=== PATIENT | female | born 1985 | race Caucasian/White ===

== ENCOUNTER 2016-09-18 15:30 | Emergency (ER) | payer OTHER ==
--- NOTE | 2016-09-18 18:03 | ED CLINICAL REPORT ---
Clinical Report - Physicians/Mid Levels [facility] [address] [place] [address] 09/18/2016 15:31 Patient: YOLIE CHAMPION Time Seen: 16:13; initial patient contact, initial documentation, patient care assumed. Arrived- By private vehicle. Historian- patient. HISTORY OF PRESENT ILLNESS Chief Complaint: ABDOMINAL PAIN. This started about 3 days ago and is still present. At its maximum, severity described as severe. When seen in the E.D., severity described as mild. Modifying factors. Not worsened by anything. Not relieved by anything. It is described as "pain". No radiation. It is described as located in the right abdomen. The patient has had nausea. No loss of appetite or diarrhea. She has had mild vomiting (x3 episodes today). The vomiting has occurred several times. No bilious emesis, feculent emesis, blood-tinged emesis, coffee-grounds emesis or frankly bloody emesis. No unusually dark emesis. No additional abdominal pain. (here with boyfriend who also has belly issues). No recent travel. Similar symptoms previously: None. Recent medical care: Not recently seen/assessed. REVIEW OF SYSTEMS No constipation, black stools, hematemesis, difficulty with urination or pain with urination. No urinary frequency or bloody stools. Denies current . She has had a subjective fever with chills and sweating. She has had chills. All systems otherwise negative, except as recorded above. PAST HISTORY See nurses notes. PROBLEMS: Syncope. Alcohol Intoxication. Hepatitis. Mental Illness. Viral Disease. Otitis Externa. Lumbar Strain. Sinusitis. Fall. Sprain. Abrasion(s). Skin Rash. Contusion. Herpes Genitalis. Bronchitis. URI. Pharyngitis. UTI - Urinary Tract Infection. Depression. --15:57 Kaylene Sanchez R.N. ADDITIONAL SURGERIES: Adenoidectomy. Tonsillectomy. Tympanostomy Tubes. --15:57 Kaylene Sanchez R.N. SOCIAL HISTORY Light tobacco smoker. Occasional alcohol use. No drug use. No recent travel. Is a local resident. FAMILY HISTORY Negative. ADDITIONAL NOTES The nursing notes have been reviewed with agreement regarding the chief complaint, HPI, ROS, PMH and patient medications and allergies. PHYSICAL EXAM Vital Signs: 09/18/2016 15:54 BP: 137/96. HR: 67. RR: 18. O2 saturation: 100%. Temp: 98.3 F. Have been reviewed as normal and appear to be correct. Appearance: Alert. Oriented X3. No acute distress. (pt appears under the influence). Eyes: Pupils equal, round and reactive to light. Eyes normal inspection. Neck: Normal inspection. Neck supple. CVS: Normal heart rate and rhythm. Heart sounds normal. Pulses normal. Respiratory: No respiratory distress. Breath sounds normal. Chest nontender. Abdomen: Soft and nontender. Bowel sounds normal. No organomegaly. No mass. Back: Normal inspection. Skin: Skin warm and dry. Normal skin color. No rash. Normal skin turgor. Extremities: Extremities exhibit normal ROM. No lower extremity edema. Neuro: Oriented X 3. No motor deficit. No sensory deficit. LABS, X-RAYS, AND EKG Laboratory Tests: UA-Culture if indicated: (ANNALISE: 09/18/2016 16:00) ( MsgRcvd 09/18/2016 16:31) Final results Test Result Flag Units (Reference) URINE COLOR YELLOW URINE APPEARANCE CLEAR URINE GLUCOSE NEGATIVE (NEGATIVE) URINE BILIRUBIN NEGATIVE (NEGATIVE) URINE KETONE NEGATIVE (NEGATIVE) URINE SPECIFIC GRAVITY 1.015 (1.010-1.030) URINE PH 6.5 (5.0-8.0) URINE PROTEIN NEGATIVE (NEGATIVE) URINE UROBILINOGEN 0.2 EU/dL (0.2-1.0) URINE NITRITE NEGATIVE (NEGATIVE) URINE BLOOD 1+ (NEGATIVE) URINE LEUK ESTERASE NEGATIVE (NEGATIVE) URINE RBC 1-3 rbc/hpf (0-1) URINE WBC 0-1 wbc/hpf (0-1) URINE EPITHELIAL CELLS 1-3 EPI/hpf (0-5) URINE BACTERIA NONE SEEN (NONE SEEN) URINE COMMENT CULT NOT INDICATED URINE CULTURES ARE SET-UP BASED ON THE FOLLOWING CRITERIA:POSITIVE NITRITEPOSITIVE LEUKOCYTE ESTERASEGREATER THAN 10 WHITE BLOOD CELLSMODERATE (2+) OR GREATER BACTERIA Urine: (ANNALISE: 09/18/2016 16:00) ( MsgRcvd 09/18/2016 17:27) Final results Test Result Flag Units (Reference) URINE NEGATIVE CBC w Diff: (ANNALISE: 09/18/2016 17:05) ( MsgRcvd 09/18/2016 17:19) Final results Test Result Flag Units (Reference) WHITE BLOOD COUNT 7.5 K/uL (4.5-11.5) RED BLOOD COUNT 4.88 M/uL (4.00-5.20) HEMOGLOBIN 15.1 gm/dL (12.0-16.0) HEMATOCRIT 44.2 % (36.0-46.0) MEAN CELL VOLUME 91 fL (80-100) MEAN CORPUSCULAR HGB 31 pg (26-34) MEAN CORPUSCULAR HGB CONC 34 g/dL (31-37) RED CELL DISTRIBUTION WIDTH 13.5 % (11.6-14.8) PLATELET COUNT 236 K/uL (150-400) NEUTROPHIL % 70.3 % (50-75) LYMPH % 22.5 L % (25-40) MONO % 5.9 % (3-14) EOSINOPHIL % 1.1 % (0-4) BASOPHIL % 0.2 % (0-2) Urine Drug Screen: (ANNALISE: 09/18/2016 16:00) ( MsgRcvd 09/18/2016 17:36) Final results Test Result Flag Units (Reference) AMPHETAMINE/METHAMPHETAMINE NEGATIVE (NEGATIVE) BARBITURATE NEGATIVE (NEGATIVE) BENZODIAZEPINE NEGATIVE (NEGATIVE) CANNABINOID POSITIVE H (NEGATIVE) COCAINE NEGATIVE (NEGATIVE) ECSTASY NEGATIVE (NEGATIVE) METHADONE NEGATIVE (NEGATIVE) OPIATE NEGATIVE (NEGATIVE) The urine drug screen is a qualitative screening test fordrug overdose and abuse. All screen results should beconsidered as presumptive.Drugs screened for are as follows:BenzodiazepinesCocaineAmphetamines/MetamphetaminesTHC (Tetrahydrocannabinol)OpiatesBarbituratesEcstasyMethadonePositive results are unconfirmed. For confirmation, notifythe lab for the specimen to be sent to the reference lab.All confirmations must be performed by a differentmethodology.The ingestion of natural herbal and plant productscontaining Ephedra/Ephedra metabolites can produce in urineone or more substances capable of cross reacting withamphetamine/methamphetamine immunoassays. These testsprovide a preliminary result only. A more specificalternative chemical method must be used to obtain aconfirmed analytical result. CMP: (ANNALISE: 09/18/2016 17:05) ( MsgRcvd 09/18/2016 17:29) Final results Test Result Flag Units (Reference) GLUCOSE 84 mg/dL (70-110) BUN 10 mg/dL (7-18) CREATININE 0.8 mg/dL (0.6-1.3) Estimated GFR >60 mL/min Estimated GFR- >60 mL/min Note: Persistent reduction over 3 months in eGFR<60 mL/min/1.73 m2 defines CKD. Patients with eGFR values>=60 mL/min/1.73 m2 may also have CKD if evidence ofpersistent proteinuria. Additional information may be foundat www.kidney.org. SODIUM 141 mmol/L (136-145) POTASSIUM 3.9 mmol/L (3.5-5.1) CHLORIDE 106 mmol/L (98-107) CARBON DIOXIDE 26 mmol/L (21-32) CALCIUM 8.7 mg/dL (8.5-10.1) TOTAL PROTEIN 7.2 g/dL (6.4-8.2) ALBUMIN 3.9 g/dL (3.3-5.0) BILIRUBIN, TOTAL 0.4 mg/dL (0.0-1.0) ALKALINE PHOSPHATASE 40 L U/L (46-116) AST (SGOT) 13 L U/L (15-37) ALT (SGPT) 21 U/L (12-78) LIPASE 85 U/L (73-393) AMYLASE 37 U/L (25-115) . PROGRESS AND PROCEDURES Patient counseled in person regarding the patient's stable condition, test results and diagnosis. 17:41. Differential Diagnosis: I considered gastritis, gastroenteritis, peptic ulcer disease, gastroesophageal reflux disease, acute appendicitis, diverticulitis, colon cancer, ulcerative colitis, Crohn's disease, biliary colic, cholecystitis, cholelithiasis, hepatitis, pancreatitis, common bile duct obstruction, urinary tract infection, and viral syndrome as a possible cause of abdominal pain in this patient. This is a partial list of diagnoses considered. (substance abuse). Above considerations are based on history and physical exam. Differential diagnosis was discussed with patient. Disposition: Discharged home in good and improved condition (18:03). Condition: good and stable. CLINICAL IMPRESSION Acute right upper quadrant and right lower quadrant abdominal pain. INSTRUCTIONS Warnings: GENERAL WARNINGS: Return or contact your physician immediately if your condition worsens or changes unexpectedly, if not improving as expected, or if other problems arise. SPECIFICALLY, return if you develop pain in the abdomen, fever, the inability to keep fluids down, blood in vomitus, blood in diarrhea, fainting or lightheadedness. Prescription Medications: Zofran 4 mg: Take 1 orally every six hours as needed for nausea/vomiting. Dispense ten (10). No refills. Substitution is permissible. [place] 5 mg / 325 mg tablets: take 1 orally every 6 hours as needed for pain. Dispense five (5). Follow-up: Follow up with your doctor in two days even if well. Call for an appointment. Summary of care provided to patient. Understanding of the discharge instructions verbalized by patient. (Electronically signed by Shanta Alfaro A.R.N.P. 09/18/2016 21:44)
--- NOTE | 2016-09-18 18:03 | ED ORDER SUMMARY ---
..... Patient: YOLIE CHAMPION OrderSheet [facility] VisitID: [id number] [place] [address] 31y, F Registration Date/Time: 09/18/2016 ORDER SHEET Weight: 61.2 kg (stated) Allergies: No Known Drug Allergy GENERAL ORDERS: UA-Culture if indicated Urgent (16:00 09/18/2016 Jase R.N. per protocol) (Ack 16:01 Karol) (16:14 EHassan R.N.) CBC w Diff Urgent (16:26 09/18/2016 HBivens A.R.N.P.) (Ack 16:42 LNations ER Tech1) (17:05 EHassan R.N.) CMP Urgent (16:09/18/2016 HBivens A.R.N.P.) (Ack 16:42 LNations ER Tech1) (17:05 EHassan R.N.) Amylase Urgent (16:26 09/18/2016 HBivens A.R.N.P.) (Ack 16:42 LNations ER Tech1) (17:05 EHassan R.N.) Lipase Urgent (16:26 09/18/2016 HBivens A.R.N.P.) (Ack 16:42 LNations ER Tech1) (17:05 EHassan R.N.) Urine Drug Screen Urgent (16:26 09/18/2016 HBivens A.R.N.P.) (Ack 16:42 LNations ER Tech1) (17:07 EHassan R.N.) Urine Urgent (16:26 09/18/2016 HBivens A.R.N.P.) (Ack 16:43 LNations ER Tech1) (17:07 EHassan R.N.) MEDICATION ORDERS: IV FLUIDS: Toradol IV 30 mg (NOW) (16:25 09/18/2016 HBivens A.R.N.P.) (17:06 EHassan R.N.) Zofran IV 4 mg (NOW) (16:25 09/18/2016 HBivens A.R.N.P.) (17:07 EHassan R.NThomas) IV Saline Lock (16:26 09/18/2016 Pedrito GregorioR.N.PThomas) (17:06 Ed Polanco) ORDER SHEET NOTES: [Electronically signed by Shanta AlfaroNThomasPThomas (21:44 09/18/2016)] [Electronically signed by Gloria Barillas R.N. (22:43 09/18/2016)] [Electronically locked/signed by Gloria Barillas R.N. (22:43 09/18/2016)]
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
--- NOTE | 2016-09-18 18:03 | ED ORDER SUMMARY ---
..... Patient: YOLIE CHAMPION OrderSheet [facility] VisitID: [id number] [place] [address] 31y, F Registration Date/Time: 09/18/2016 ORDER SHEET Weight: 61.2 kg (stated) Allergies: No Known Drug Allergy GENERAL ORDERS: UA-Culture if indicated Urgent (16:00 09/18/2016 Jase R.N. per protocol) (Ack 16:01 Karol) (16:14 EHassan R.N.) CBC w Diff Urgent (16:26 09/18/2016 HBivens A.R.N.P.) (Ack 16:42 LNations ER Tech1) (17:05 EHassan R.N.) CMP Urgent (16:09/18/2016 HBivens A.R.N.P.) (Ack 16:42 LNations ER Tech1) (17:05 EHassan R.N.) Amylase Urgent (16:26 09/18/2016 HBivens A.R.N.P.) (Ack 16:42 LNations ER Tech1) (17:05 EHassan R.N.) Lipase Urgent (16:26 09/18/2016 HBivens A.R.N.P.) (Ack 16:42 LNations ER Tech1) (17:05 EHassan R.N.) Urine Drug Screen Urgent (16:26 09/18/2016 HBivens A.R.N.P.) (Ack 16:42 LNations ER Tech1) (17:07 EHassan R.N.) Urine Urgent (16:26 09/18/2016 HBivens A.R.N.P.) (Ack 16:43 LNations ER Tech1) (17:07 EHassan R.N.) MEDICATION ORDERS: IV FLUIDS: Toradol IV 30 mg (NOW) (16:25 09/18/2016 HBivens A.R.N.P.) (17:06 EHassan R.N.) Zofran IV 4 mg (NOW) (16:25 09/18/2016 HBivens A.R.N.P.) (17:07 EHassan R.NThomas) IV Saline Lock (16:26 09/18/2016 Pedrito GregorioR.N.PThomas) (17:06 Ed Polanco) ORDER SHEET NOTES: [Electronically signed by Shanta AlfaroNThomasPThomas (21:44 09/18/2016)] [Electronically signed by Gloria Barillas R.N. (22:43 09/18/2016)] [Electronically locked/signed by Gloria Barillas R.N. (22:43 09/18/2016)]
--- NOTE | 2016-09-18 22:43 | ED DISCHARGE INSTRUCTIONS ---
Patient: YOLIE CHAMPION General Instructions [facility] VisitID: [id number] [place] [address] 31y, F Registration Date/Time: 09/18/2016 Acute right upper quadrant and right lower quadrant abdominal pain. INSTRUCTIONS Warnings: GENERAL WARNINGS: Return or contact your physician immediately if your condition worsens or changes unexpectedly, if not improving as expected, or if other problems arise. SPECIFICALLY, return if you develop pain in the abdomen, fever, the inability to keep fluids down, blood in vomitus, blood in diarrhea, fainting or lightheadedness. Prescription Medications: Zofran 4 mg: Take 1 orally every six hours as needed for nausea/vomiting. Dispense ten (10). No refills. Substitution is permissible. [place] 5 mg / 325 mg tablets: take 1 orally every 6 hours as needed for pain. Dispense five (5). Follow-up: Follow up with your doctor in two days even if well. Call for an appointment. Summary of care provided to patient. Understanding of the discharge instructions verbalized by patient. ADDITIONAL INFORMATION Abdominal Pain, Unknown Cause (Female) The exact cause of your abdominal (stomach) pain is not certain. This does not mean that this is something to worry about, or the right tests were not done. Everyone likes to know the exact cause of the problem, but sometimes with abdominal pain, there is no clear-cut cause, and this could be a good thing. The good news is that your symptoms can be treated, and you will feel better. Your condition does not seem serious now; however, sometimes the signs of a serious problem may take more time to appear. For this reason,it is important for you to watch for any new symptoms, problems,or worsening of your condition. Over the next few days, the abdominal pain may come and go, or be continuous. Other common symptoms can include nausea and vomiting. Sometimes it can be difficult to tell if you feel nauseous, you may just feel bad and not associate that feeling with nausea. Constipation, diarrhea, and a fever may go along with the pain. The pain may continue even if treated correctly over the following days. Depending on how things go, sometimes the cause can become clear and may require further or different treatment. Additional evaluations, medications, or tests may be needed. Home care Your health care provider may prescribe medications for pain, symptoms, or an infection. Follow the health care provider's instructions for taking these medications. General care Rest until your next exam. No strenuous activities. Try to find positions that ease discomfort. A small pillow placed on the abdomen may help relieve pain. Something warm on your abdomen (such as a heating pad) may help, but be careful not to burn yourself. Diet Do not force yourself to eat, especially if having cramps, vomiting, or diarrhea. Water is important so you do not get dehydrated. Soup may also be good. Sports drinks may also help, especially if they are not too acidic. Make sure you don't drink sugary drinks as this can make things worse. Take liquids in small amounts. Do not guzzle them. Caffeine sometimes makes the pain and cramping worse. Avoid dairy products if you have vomiting or diarrhea. Don't eat large amounts at a time. Wait a few minutes between bites. Eat a diet low in fiber (called a low-residue diet). Foods allowed include refined breads, white rice, fruit and vegetable juices without pulp, tender meats. These foods will pass more easily through the intestine. Avoid whole-grain foods, whole fruits and vegetables, meats, seeds and nuts, fried or fatty foods, dairy, alcohol and spicy foods until your symptoms go away. Follow-up care Follow up with your health care provider as instructed, or if your pain does not begin to improve in the next 24 hours. When to seek medical care Seek prompt medical care if any of the following occur: Pain gets worse or moves to the right lower abdomen New or worsening vomiting or diarrhea Swelling of the abdomen Unable to pass stool for more than three days Fever of 100.4F (38C) or higher, or as directed by your healthcare provider. Blood in vomit or bowel movements (dark red or black color) Jaundice (yellow color of eyes and skin) Weakness, dizziness Chest, arm, back, neck or jaw pain Unexpected vaginal bleeding or missed period Call 911 Call emergency services if any of the following occur: Trouble breathing Confusion Fainting or loss of consciousness Rapid heart rate Seizure Abdominal Pain,Possible Appendicitis [Repeat Exam, Female] Based on your visit today, the exact cause of your abdominal (stomach) pain is not certain. However, you do have some of the early signs of APPENDICITIS. Early in an appendix infection the symptoms can be similar to a simple "stomach ache" or "stomach flu". Therefore, the diagnosis can be hard to make. Since an appendix infection is a serious condition, it is important to know if this is the cause of your symptoms. WAITING for more time to pass and repeating the exam is the best way to find out whether you have appendicitis. Within the next 12-24 hours the cause of your stomach pain should become clear. It is important for you to watch for any new symptoms or worsening of your condition. (See below). Home Care: Rest until your next exam. No strenuous activities. Eat a diet low in fiber (called a low-residue diet). Foods allowed include refined breads, white rice, fruit and vegetable juices without pulp, tender meats. These foods will pass more easily through the intestine. Avoid whole-grain foods, whole fruits and vegetables, meats, seeds and nuts, fried or fatty foods, dairy, alcohol and spicy foods until your symptoms go away. In some cases, you may be asked not to eat or drink anything until you are re-examined. Return for another exam exactly as directed. Follow Up with your doctor or this facility as directed. Get Prompt Medical Attention if any of the following occur: Pain gets worse or moves to the right lower abdomen New or worsening vomiting or diarrhea Swelling of the abdomen Unable to pass stool for more than three days Fever of 100.4F (38C) or higher, or as directed by your healthcare provider Blood in vomit or bowel movements (dark red or black color) Weakness, dizziness or fainting Unexpected vaginal bleeding Ondansetron Oral disintegrating tablet What is this medicine? ONDANSETRON (on SANTANA se debi) is used to treat nausea and vomiting caused by chemotherapy. It is also used to prevent or treat nausea and vomiting after surgery. How should I use this medicine? These tablets are made to dissolve in the mouth. Do not try to push the tablet through the foil backing. With dry hands, peel away the foil backing and gently remove the tablet. Place the tablet in the mouth and allow it to dissolve, then swallow. While you may take these tablets with water, it is not necessary to do so. Talk to your manager golf regarding the use of this medicine in children. Special care may be needed. What side effects may I notice from receiving this medicine? Side effects that you should report to your doctor or health childcare attendant as soon as possible: allergic reactions like skin rash, itching or hives, swelling of the face, lips, or tongue breathing problems dizziness fast or irregular heartbeat feeling faint or lightheaded, falls fever and chills swelling of the hands and feet tightness in the chest Side effects that usually do not require medical attention (report to your doctor or health childcare attendant if they continue or are bothersome): constipation or diarrhea headache What may interact with this medicine? Do not take this medicine with any of the following medications: -apomorphine -cisapride -dofetilide -dronedarone -pimozide -thioridazine -ziprasidone This medicine may also interact with the following medications: -carbamazepine -phenytoin -rifampicin -tramadol -other medicines that prolong the QT interval (cause an abnormal heart rhythm) What if I miss a dose? If you miss a dose, take it as soon as you can. If it is almost time for your next dose, take only that dose. Do not take double or extra doses. Where should I keep my medicine? Keep out of the reach of children. Store between 2 and 30 degrees C (36 and 86 degrees F). Throw away any unused medicine after the expiration date. What should I tell my health care provider before I take this medicine? They need to know if you have any of these conditions: heart disease history of irregular heartbeat liver disease low levels of magnesium or potassium in the blood an unusual or allergic reaction to ondansetron, granisetron, other medicines, foods, dyes, or preservatives or trying to get breast-feeding What should I watch for while using this medicine? Check with your doctor or health childcare attendant as soon as you can if you have any sign of an allergic reaction. Hydrocodone Bitartrate, Acetaminophen Oral tablet What is this medicine? ACETAMINOPHEN; HYDROCODONE (a set a TU raji fen; blanca droe KOE done) is a pain reliever. It is used to treat mild to moderate pain. How should I use this medicine? Take this medicine by mouth. Swallow it with a full glass of water. Follow the directions on the prescription label. If the medicine upsets your stomach, take the medicine with food or milk. Do not take more than you are told to take. Talk to your manager golf regarding the use of this medicine in children. This medicine is not approved for use in children. What side effects may I notice from receiving this medicine? Side effects that you should report to your doctor or health childcare attendant as soon as possible: allergic reactions like skin rash, itching or hives, swelling of the face, lips, or tongue breathing problems confusion feeling faint or lightheaded, falls stomach pain yellowing of the eyes or skin Side effects that usually do not require medical attention (report to your doctor or health childcare attendant if they continue or are bothersome): nausea, vomiting stomach upset What may interact with this medicine? alcohol antihistamines isoniazid medicines for depression, anxiety, or psychotic disturbances medicines for sleep muscle relaxants naltrexone narcotic medicines (opiates) for pain phenobarbital ritonavir tramadol What if I miss a dose? If you miss a dose, take it as soon as you can. If it is almost time for your next dose, take only that dose. Do not take double or extra doses. Where should I keep my medicine? Keep out of the reach of children. This medicine can be abused. Keep your medicine in a safe place to protect it from theft. Do not share this medicine with anyone. Selling or giving away this medicine is dangerous and against the law. Store at room temperature between 15 and 30 degrees C (59 and 86 degrees F). Protect from light. Keep container tightly closed. Throw away any unused medicine after the expiration date. Discard unused medicine and used packaging carefully. Pets and children can be harmed if they find used or lost packages. What should I tell my health care provider before I take this medicine? They need to know if you have any of these conditions: brain tumor Crohn's disease, inflammatory bowel disease, or ulcerative colitis drink more than 3 alcohol-containing drinks per day drug abuse or addiction head injury heart or circulation problems kidney disease or problems going to the bathroom liver disease lung disease, asthma, or breathing problems an unusual or allergic reaction to acetaminophen, hydrocodone, other opioid analgesics, other medicines, foods, dyes, or preservatives or trying to get breast-feeding What should I watch for while using this medicine? Tell your doctor or health childcare attendant if your pain does not go away, if it gets worse, or if you have new or a different type of pain. You may develop tolerance to the medicine. Tolerance means that you will need a higher dose of the medicine for pain relief. Tolerance is normal and is expected if you take the medicine for a long time. Do not suddenly stop taking your medicine because you may develop a severe reaction. Your body becomes used to the medicine. This does NOT mean you are addicted. Addiction is a behavior related to getting and using a drug for a non-medical reason. If you have pain, you have a medical reason to take pain medicine. Your doctor will tell you how much medicine to take. If your doctor wants you to stop the medicine, the dose will be slowly lowered over time to avoid any side effects. You may get drowsy or dizzy when you first start taking the medicine or change doses. Do not drive, use machinery, or do anything that may be dangerous until you know how the medicine affects you. Stand or sit up slowly. There are different types of narcotic medicines (opiates) for pain. If you take more than one type at the same time, you may have more side effects. Give your health care provider a list of all medicines you use. Your doctor will tell you how much medicine to take. Do not take more medicine than directed. Call emergency for help if you have problems breathing. The medicine will cause constipation. Try to have a bowel movement at least every 2 to 3 days. If you do not have a bowel movement for 3 days, call your doctor or health childcare attendant. Too much acetaminophen can be very dangerous. Do not take Tylenol (acetaminophen) or medicines that contain acetaminophen with this medicine. Many non-prescription medicines contain acetaminophen. Always read the labels carefully. You have been given the following additional information: Abdominal Pain, Unknown Cause, (Female) Abdominal Pain, Possible Appendicitis (Female) Ondansetron Oral disintegrating tablet Hydrocodone Bitartrate, Acetaminophen Oral tablet (Electronically signed by Shanta Alfaro A.R.N.P. 09/18/2016 21:44)
--- NOTE | 2016-09-18 22:43 | ED MAR SUMMARY ---
..... Medication Administration Record [facility] [address] [place] [address] Patient: YOLIE CHAMPION Visit ID: [id number] 31y, F Weight: 61.2 kg Height/Length: 60 in BMI: 26.4 ALLERGIES: No Known Drug Allergy Given 17:06 09/18/2016 Gloria Barillas RAna Medication Administered: TORADOL [IVP], Dose: 30 mg IVP over 1 minute(s), Site: #1 left AC. Medication Ordered: Toradol IV 30 mg (NOW). Given 17:07 09/18/2016 Gloria Barillas RThomasN. Medication Administered: ZOFRAN [IVP] (ONDANSETRON HCL), Dose: 4 mg IVP over 2 minute(s), Site: #1 left AC. Medication Ordered: Zofran IV 4 mg (NOW).
--- NOTE | 2016-09-18 22:43 | ED MED RECONCILIATION SUMMARY ---
Patient: YOLIE CHAMPION Medication Reconciliation Report [facility] VisitID: [id number] [address] [place] [address] 31y, F Registration Date/Time: 09/18/2016 Weight: 61.2 kg Height/Length: 60 in. BMI: 26.4 ALLERGIES: No Known Drug Allergy The patient's Home Medications are listed below: THE FOLLOWING MEDICATIONS NEED TO BE RECONCILED: CeleXA Oral The source(s) of the original Home Medication information: Not obtained. The following Medications were given to the patient in the Emergency Department: Toradol [IVP] IVP 30 mg, administered: 09/18/2016 5:06:00 PM Zofran [IVP] IVP 4 mg, administered: 09/18/2016 5:07:00 PM The following Medications were prescribed to the patient: Zofran 4 mg: Take 1 orally every six hours as needed for nausea/vomiting. Dispense ten (10). No refills. Substitution is permissible. -- Shanta Alfaro A.R.N.P. [place] 5 mg / 325 mg tablets: take 1 orally every 6 hours as needed for pain. Dispense five (5). -- Shanta Alfaro A.R.N.P.
--- NOTE | 2016-09-18 22:43 | ED MED RECONCILIATION SUMMARY ---
Patient: YOLIE CHAMPION Medication Reconciliation Report [facility] VisitID: [id number] [address] [place] [address] 31y, F Registration Date/Time: 09/18/2016 Weight: 61.2 kg Height/Length: 60 in. BMI: 26.4 ALLERGIES: No Known Drug Allergy The patient's Home Medications are listed below: THE FOLLOWING MEDICATIONS NEED TO BE RECONCILED: CeleXA Oral The source(s) of the original Home Medication information: Not obtained. The following Medications were given to the patient in the Emergency Department: Toradol [IVP] IVP 30 mg, administered: 09/18/2016 5:06:00 PM Zofran [IVP] IVP 4 mg, administered: 09/18/2016 5:07:00 PM The following Medications were prescribed to the patient: Zofran 4 mg: Take 1 orally every six hours as needed for nausea/vomiting. Dispense ten (10). No refills. Substitution is permissible. -- Shanta Alfaro A.R.N.P. [place] 5 mg / 325 mg tablets: take 1 orally every 6 hours as needed for pain. Dispense five (5). -- Shanta Alfaro A.R.N.P.
--- NOTE | 2016-09-18 22:43 | ED MAR SUMMARY ---
..... Medication Administration Record [facility] [address] [place] [address] Patient: YOLIE CHAMPION Visit ID: [id number] 31y, F Weight: 61.2 kg Height/Length: 60 in BMI: 26.4 ALLERGIES: No Known Drug Allergy Given 17:06 09/18/2016 Gloria Barillas RAna Medication Administered: TORADOL [IVP], Dose: 30 mg IVP over 1 minute(s), Site: #1 left AC. Medication Ordered: Toradol IV 30 mg (NOW). Given 17:07 09/18/2016 Gloria Barillas RThomasN. Medication Administered: ZOFRAN [IVP] (ONDANSETRON HCL), Dose: 4 mg IVP over 2 minute(s), Site: #1 left AC. Medication Ordered: Zofran IV 4 mg (NOW).
== END 2016-09-18 18:12 | disposition home or self-care (01) ==
LOC: ED SRH 15:30
DX: R10.11 Right upper quadrant pain (principal); R10.31 Right lower quadrant pain; R11.2 Nausea with vomiting, unspecified; F17.210 Nicotine dependence, cigarettes, uncomplicated
CPT/HCPCS: 90004; 90074; 90100; 92235; 92530; 92760; 92761; 92762; 92763; 92764; 92765; 92766; 92767; 93070; 95059

== ENCOUNTER 2016-09-20 16:23 | Emergency (ER) | payer OTHER ==
--- NOTE | 2016-09-20 18:10 | DIAGNOSTIC IMAGING REPORT ---
PROCEDURE: CT ABD/PELVIS WITH CONTRAST CLINICAL INDICATION: Right lower quadrant pain x 4 days, initial encounter TECHNIQUE: 100 ml of Isovue 300 were injected intravenously and axial images were obtained of the entire abdomen and pelvis with sagittal and coronal reformations. COMPARISON: Pelvic ultrasound 05/13/2016 FINDINGS: ABDOMEN: Lung bases are clear. Borderline cardiomegaly. Liver, gallbladder, pancreas, spleen, adrenal glands, kidneys and abdominal aorta are normal. Increased stool. PELVIS: Appendix not visualized but no evidence of acute appendicitis. IUD in place. Adnexa and bladder are unremarkable. No inflammatory changes or free fluid. Bones are unremarkable. IMPRESSION: 1. Obstipation 2. Appendix not visualized but no evidence of acute appendicitis 3. IUD in satisfactory position 4. Borderline cardiomegaly 5. Results discussed with Edvin Wolff All CT scans at this facility use dose modulation, iterative reconstruction, and/or weight-based dosing when appropriate to reduce radiation dose to as low as reasonably achievable.
--- NOTE | 2016-09-20 18:51 | ED ORDER SUMMARY ---
..... Patient: YOLIE CHAMPION OrderSheet [facility] VisitID: [id number] [place] [address] 31y, F Registration Date/Time: 09/20/2016 ORDER SHEET Weight: 61.2 kg (stated) Allergies: No Known Drug Allergy GENERAL ORDERS: CT Abd/Pel w Cont (No) (pending) (RLQ pain for 2 days.) Urgent (16:55 09/20/2016 JCoates) (Ack 17:35 RKaruga) (18:33 MCampbell) CBC w Diff Urgent (16:57 09/20/2016 JCoates) (Ack 17:35 RKaruga) (17:45 JRomanelli R.N.) CMP Urgent (16:57 09/20/2016 JCoates) (Ack 17:35 RKaruga) (17:45 JRomanelli R.N.) Urine Urgent (16:57 09/20/2016 JCoates) (Ack 17:35 RKaruga) (21:31 JRomanelli R.N.) Urine Drug Screen Urgent (16:57 09/20/2016 JCoates) (Ack 17:35 RKaruga) (21:31 JRomanelli R.N.) UA-Culture if indicated Urgent (16:57 09/20/2016 JCoates) (Ack 17:35 RKaruga) (21:31 JRomanelli R.N.) NPO (16:57 09/20/2016 JCoates) (17:45 JRomanelli R.N.) MEDICATION ORDERS: IV FLUIDS: Zofran IV 8 mg (NOW) (16:55 09/20/2016 JCoates) (17:47 JRomanelli R.N.) Dilaudid IV 0.5 mg (NOW) (16:55 09/20/2016 JCoates) (17:48 JRomanelli R.N.) IV NS with Normal Saline 1 Liter: initial bolus 1000 mL (1000 mL/hr), then 1000 mL/hr for X1 (NOW) (16:57 09/20/2016 JCoates) (17:46 JRomanelli R.N.) IV Saline Lock (16:57 09/20/2016 JCoates) (17:46 Gee Polanco) ORDER SHEET NOTES: [Electronically signed by Escobar Raman R.N. (21:36 09/20/2016)] [Electronically signed by Edvin Raines (23:05 09/20/2016)] [Electronically locked/signed by Escobar Raman R.N. (21:36 09/20/2016)]
--- NOTE | 2016-09-20 18:51 | ED NURSING NOTES ---
Clinical Report - Nurses [facility] [address] [place] [address] 09/20/2016 16:23 Patient: YOLIE CHAMPION TRIAGE Triage time 16:30 Sep 20 2016. Acuity: LEVEL 3. Chief Complaint: ABDOMINAL PAIN, NAUSEA and VOMITING. Alert. BETHEL COMA SCORE: Bethel Coma Scale: 15- eyes open spontaneously (4); best verbal response- oriented x 4 (5); best motor response- obeys commands (6). --16:45 Escobar Raman R.N. 16:32 09/20/16. BP: 123/72. HR: 89. RR: 16. O2 saturation: 99% on room air. Temp: 99 F (oral). Pain level now: 910. Additional comments: RUQ abd pain. --16:45 Escobar Raman R.N. Weight: 61.2 kg stated. Height/Length: 60 inches Per Patient. BMI: 26.4. --16:43 Escobar Raman R.N. Medications CeleXA Oral. --19:29 Chaparrita Bardales. Allergies No Known Drug Allergy. --19:28 Chaparrita Bardales. History Arrived by private vehicle. Historian: patient. Unaccompanied. Primary physician (Harshad Moyer, [place], [place]). ( RUQ Abdominal Pain associated with N/V. Seen here here 2 3 days ago for same c/o.). Onset. (about 7 days ago). She has had fever, nausea, vomiting and abdominal pain. Last oral intake by patient was (about 1 1/2 hours ago, but the food came right back up). 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 Symptoms did not improve after treatment. (Zofran, warm showers). PAST MEDICAL HX: Immunizations: up-to-date. Last normal menstrual period was 7 weeks ago- pt has an IUD placed. Denies current . SOCIAL HX: Heavy tobacco smoker (cigarette)- less than 1 pack per day. No alcohol use or drug use. No recent travel. No infectious disease exposure. ABUSE ASSESSMENT: No report of abuse. FALL RISK ASSESSMENT: Fall risk assessment completed. No fall risk identified. NUTRITIONAL RISK ASSESSMENT: The nutritional risk assessment revealed no deficiencies. FUNCTIONAL ASSESSMENT: Functional assessment: no impairments noted. LEARNING NEEDS ASSESSMENT: The learning needs assessment revealed no barriers. SKIN INTEGRITY ASSESSMENT: Skin integrity risk assessment completed. No skin integrity risk identified. --16:45 Escobar Raman R.N. PROBLEMS: Abdominal Pain. Syncope. Alcohol Intoxication. Mental Illness. Viral Disease. Vomiting. Otitis Externa. Lumbar Strain. Sinusitis. Fall. Abrasion(s). Skin Rash. Contusion. Herpes Genitalis. Tetanus Status. Laceration. Bronchitis. URI. Pharyngitis. Otitis Media. Frequent Ear Infections. UTI - Urinary Tract Infection. Depression. Immunizations. Ear Infection. --16:42 Escobar Raman R.N. ADDITIONAL SURGERIES: Adenoidectomy. Tonsillectomy. Tympanostomy Tubes. --16:42 Escobar Raman R.N. Interventions ID band on patient. To treatment room. --16:45 Escobar Raman R.N. PHYSICAL ASSESSMENT Ambulatory to room. GENERAL / NEURO / PSYCH: Alert. Oriented X 4. Appears in pain. HEENT: Mucous membranes are pink. RESPIRATORY: Respirations not labored. CVS: Cardiac rhythm: normal sinus rhythm. Capillary refill less than 2 seconds. GI / : Abdominal tenderness in the right upper quadrant. SKIN: Skin is warm and dry. --16:46 Escobar Raman R.N. NURSING PROGRESS NOTES Patient gowned. Reassurance given to the patient. Patient identifiers checked. Call light placed in reach. Side rails up x 1. Bed placed in lowest position. Brakes of bed on. Patient ready for evaluation- chart flagged and ELECTRIC FURNACE OPERATOR notified. --16:46 Escobar Raman R.N. 17:30 09/20/2016 Site #1 started via IV in the left antecubital space with an 20g angiocath, with aseptic technique and good blood return; one attempt. Blood drawn: rainbow set. Labeled in the presence of the patient and sent to the lab. Saline lock flushed with 10 mL saline. --17:45 Escobar Raman R.N. 17:35 09/20/2016 Started bag #1 1000 mL IV Fluids IV NS (Saline); at 1000 mL/hr over 60 minute(s) via site #1. Allergies verified and confirmed 5 rights. IV patency established. IV site checked: no pain, redness, or swelling. IV flushed thoroughly pre- and post-medication administration. --17:46 Escobar Raman R.N. 17:37 09/20/2016 Zofran (Ondansetron HCl) IVP 8 mg given over 3 minute(s) via site #1. Allergies verified and confirmed 5 rights. IV patency established. IV site checked: no pain, redness, or swelling. IV flushed thoroughly pre- and post-medication administration. IVP given by RN. --17:47 Escobar Raman R.N. 17:39 09/20/2016 Dilaudid (HYDROmorphone HCl PF) IVP 0.5 mg given over 2 minute(s) via site #1. Allergies verified, confirmed 5 rights and sedative warning given to the patient. IV patency established. IV site checked: no pain, redness, or swelling. IV flushed thoroughly pre- and post-medication administration. IVP given by RN. --17:48 Escobar Raman R.N. 17:47 09/20/16. Patient transported to CT by stretcher with tech. --17:50 Escobar Raman R.N. Patient returned from CT by stretcher with tech. --17:56 Escobar Raman R.N. 17:55 09/20/16. Patient ID band checked for patient name, birthdate and medical record number: patient confirmed. Instructions provided to collect clean catch urine and patient verbalized understanding. Clean catch urine collected with return of yellow-colored clear urine; odor is normal; sample sent to lab for urinalysis. Specimen labeled in the presence of the patient. --17:58 Escobar Raman R.N. 18:40 09/20/2016 IV Fluids IV NS Discontinued: bag #1 infused. Total amount infused: 1000 mL. IV patency established. IV site checked: no pain, redness, or swelling. IV flushed thoroughly. --21:33 Escobar Raman R.N. 19:15 09/20/2016 Site #1 removed upon discharge. Catheter intact. Manual pressure, pressure dressing and bandaid applied. --21:34 Escobar Raman R.N. DISPOSITION / DISCHARGE 19:15 09/20/16. BP: 115/70. HR: 66. RR: 16. O2 saturation: 100% on room air. Temp: 98.4 F (oral). Pain level now: 08/31. Additional comments: Abdominal pain. --21:29 Escobar Raman R.N. Departure time: 1919. --21:29 Escobar Raman R.N. 19:20. Condition at departure: improved. No learning barriers present. Discharge instructions provided and reviewed with the patient. Reviewed medication(s) dosing information (prescription given to pt). Reviewed referral to family practice for followup. Patient verbalized understanding. Written instructions provided in Lithuanian. The patient was discharged by the physician. She was discharged home and accompanied by draw bench operator helper. She left the Emergency Department ambulatory and via private vehicle. Lead Manufacturing Engineering Tech driving. --21:31 Escobar Raman R.N. Locked/Released at 09/20/2016 21:36 by Escobar Raman R.N.
--- NOTE | 2016-09-20 18:51 | ED ORDER SUMMARY ---
..... Patient: YLOIE CHAMPION OrderSheet [facility] VisitID: [id number] [place] [address] 31y, F Registration Date/Time: 09/20/2016 ORDER SHEET Weight: 61.2 kg (stated) Allergies: No Known Drug Allergy GENERAL ORDERS: CT Abd/Pel w Cont (No) (pending) (RLQ pain for 2 days.) Urgent (16:55 09/20/2016 JCoates) (Ack 17:35 RKaruga) (18:33 MCampbell) CBC w Diff Urgent (16:57 09/20/2016 JCoates) (Ack 17:35 RKaruga) (17:45 JRomanelli R.N.) CMP Urgent (16:57 09/20/2016 JCoates) (Ack 17:35 RKaruga) (17:45 JRomanelli R.N.) Urine Urgent (16:57 09/20/2016 JCoates) (Ack 17:35 RKaruga) (21:31 JRomanelli R.N.) Urine Drug Screen Urgent (16:57 09/20/2016 JCoates) (Ack 17:35 RKaruga) (21:31 JRomanelli R.N.) UA-Culture if indicated Urgent (16:57 09/20/2016 JCoates) (Ack 17:35 RKaruga) (21:31 JRomanelli R.N.) NPO (16:57 09/20/2016 JCoates) (17:45 JRomanelli R.N.) MEDICATION ORDERS: IV FLUIDS: Zofran IV 8 mg (NOW) (16:55 09/20/2016 JCoates) (17:47 JRomanelli R.N.) Dilaudid IV 0.5 mg (NOW) (16:55 09/20/2016 JCoates) (17:48 JRomanelli R.N.) IV NS with Normal Saline 1 Liter: initial bolus 1000 mL (1000 mL/hr), then 1000 mL/hr for X1 (NOW) (16:57 09/20/2016 JCoates) (17:46 JRomanelli R.N.) IV Saline Lock (16:57 09/20/2016 JCoates) (17:46 Gee Polanco) ORDER SHEET NOTES: [Electronically signed by Escobar Raman R.N. (21:36 09/20/2016)] [Electronically signed by Edvin Raines (23:05 09/20/2016)] [Electronically locked/signed by Escobar Raman R.N. (21:36 09/20/2016)]
--- NOTE | 2016-09-20 18:51 | ED CLINICAL REPORT ---
Clinical Report - Physicians/Mid Levels [facility] [address] [place] [address] 09/20/2016 16:23 [id number] Time Seen: 16:32 Sep 20 2016. Arrived- By private vehicle. Historian- patient. HISTORY OF PRESENT ILLNESS Chief Complaint: ABDOMINAL PAIN and VOMITING, DIARRHEA and NAUSEA. At its maximum, severity described as severe. When seen in the E.D., severity described as severe. This started about 5 days ago and is still present and now worse. It is described as "pain", cramping and well localized and it is described as located in the right abdomen and right lower quadrant. The patient has had nausea, loss of appetite, vomiting and diarrhea. No recent travel. Similar symptoms previously: Recent medical care: The patient was seen recently at this facility. REVIEW OF SYSTEMS No black stools, hematemesis, difficulty with urination, pain with urination or urinary frequency. No bloody stools, fever, headache, chest pain or difficulty breathing. No cough, joint pain, skin rash or chills. Denies current . All systems otherwise negative, except as recorded above. PAST HISTORY No history of heart disease, lung disease or diabetes mellitus. SOCIAL HISTORY Smoker- current status unknown. Alcohol use. No drug use. ADDITIONAL NOTES The nursing notes have been reviewed. PHYSICAL EXAM Appearance: Alert. Oriented X3. No acute distress. Eyes: Pupils equal, round and reactive to light. Eyes normal inspection. ENT: Nose normal. Pharynx normal. Neck: Normal inspection. Neck supple. No JVD or lymphadenopathy. CVS: Normal heart rate and rhythm. Heart sounds normal. Respiratory: No respiratory distress. Breath sounds normal. Abdomen: Soft. Moderate tenderness in the right lower quadrant. No guarding, rebound tenderness or obturator or psoas sign present. No organomegaly. No mass. Back: Normal inspection. No CVA tenderness. Skin: Skin warm and dry. No rash. Extremities: Extremities exhibit normal ROM. No lower extremity edema. Neuro: No motor deficit. No sensory deficit. LABS, X-RAYS, AND EKG Abdominal CT: No mass, appendicitis or diverticulitis. large amount of stool in the right abdomen. Abdominal CT performed with IV contrast. The study was discussed with the radiologist. Laboratory Tests: UA-Culture if indicated: (ANNALISE: 09/20/2016 17:45) ( [facility] 09/20/2016 18:14) Final results Test Result Flag Units (Reference) URINE COLOR LIGHT YELLOW URINE APPEARANCE CLEAR URINE GLUCOSE NEGATIVE (NEGATIVE) URINE BILIRUBIN NEGATIVE (NEGATIVE) URINE KETONE NEGATIVE (NEGATIVE) URINE SPECIFIC GRAVITY 1.010 (1.010-1.030) URINE PH 7.5 (5.0-8.0) URINE PROTEIN NEGATIVE (NEGATIVE) URINE UROBILINOGEN 0.2 EU/dL (0.2-1.0) URINE NITRITE NEGATIVE (NEGATIVE) URINE BLOOD TRACE-LYSED (NEGATIVE) URINE LEUK ESTERASE NEGATIVE (NEGATIVE) URINE RBC NONE SEEN rbc/hpf (0-1) URINE WBC 0-1 wbc/hpf (0-1) URINE EPITHELIAL CELLS 1-3 EPI/hpf (0-5) URINE BACTERIA NONE SEEN (NONE SEEN) URINE COMMENT CULT NOT INDICATED URINE CULTURES ARE SET-UP BASED ON THE FOLLOWING CRITERIA:POSITIVE NITRITEPOSITIVE LEUKOCYTE ESTERASEGREATER THAN 10 WHITE BLOOD CELLSMODERATE (2+) OR GREATER BACTERIA Urine: (ANNALISE: 09/20/2016 17:45) ( [facility] 09/20/2016 18:03) Final results Test Result Flag Units (Reference) URINE NEGATIVE CBC w Diff: (ANNALISE: 09/20/2016 17:30) ( [facility] 09/20/2016 17:55) Final results Test Result Flag Units (Reference) WHITE BLOOD COUNT 7.9 K/uL (4.5-11.5) RED BLOOD COUNT 4.83 M/uL (4.00-5.20) HEMOGLOBIN 15.0 gm/dL (12.0-16.0) HEMATOCRIT 44.3 % (36.0-46.0) MEAN CELL VOLUME 92 fL (80-100) MEAN CORPUSCULAR HGB 31 pg (26-34) MEAN CORPUSCULAR HGB CONC 34 g/dL (31-37) RED CELL DISTRIBUTION WIDTH 13.6 % (11.6-14.8) PLATELET COUNT 228 K/uL (150-400) NEUTROPHIL % 79.9 H % (50-75) LYMPH % 14.6 L % (25-40) MONO % 4.2 % (3-14) EOSINOPHIL % 0.9 % (0-4) BASOPHIL % 0.4 % (0-2) Urine Drug Screen: (ANNALISE: 09/20/2016 17:45) ( [facility] 09/20/2016 18:21) Final results Test Result Flag Units (Reference) AMPHETAMINE/METHAMPHETAMINE NEGATIVE (NEGATIVE) BARBITURATE NEGATIVE (NEGATIVE) BENZODIAZEPINE NEGATIVE (NEGATIVE) CANNABINOID NEGATIVE (NEGATIVE) COCAINE NEGATIVE (NEGATIVE) ECSTASY NEGATIVE (NEGATIVE) METHADONE NEGATIVE (NEGATIVE) OPIATE NEGATIVE (NEGATIVE) The urine drug screen is a qualitative screening test fordrug overdose and abuse. All screen results should beconsidered as presumptive.Drugs screened for are as follows:BenzodiazepinesCocaineAmphetamines/MetamphetaminesTHC (Tetrahydrocannabinol)OpiatesBarbituratesEcstasyMethadonePositive results are unconfirmed. For confirmation, notifythe lab for the specimen to be sent to the reference lab.All confirmations must be performed by a differentmethodology.The ingestion of natural herbal and plant productscontaining Ephedra/Ephedra metabolites can produce in urineone or more substances capable of cross reacting withamphetamine/methamphetamine immunoassays. These testsprovide a preliminary result only. A more specificalternative chemical method must be used to obtain aconfirmed analytical result. CMP: (ANNALISE: 09/20/2016 17:30) ( [facility] 18:11) Final results Test Result Flag Units (Reference) GLUCOSE 86 mg/dL (70-110) BUN 11 mg/dL (7-18) CREATININE 0.9 mg/dL (0.6-1.3) Estimated GFR >60 mL/min Estimated GFR- >60 mL/min Note: Persistent reduction over 3 months in eGFR<60 mL/min/1.73 m2 defines CKD. Patients with eGFR values>=60 mL/min/1.73 m2 may also have CKD if evidence ofpersistent proteinuria. Additional information may be foundat www.kidney.org. SODIUM 144 mmol/L (136-145) POTASSIUM 4.3 mmol/L (3.5-5.1) CHLORIDE 107 mmol/L (98-107) CARBON DIOXIDE 29 mmol/L (21-32) CALCIUM 9.1 mg/dL (8.5-10.1) TOTAL PROTEIN 7.2 g/dL (6.4-8.2) ALBUMIN 3.8 g/dL (3.3-5.0) BILIRUBIN, TOTAL 0.5 mg/dL (0.0-1.0) ALKALINE PHOSPHATASE 40 L U/L (46-116) AST (SGOT) 23 U/L (15-37) ALT (SGPT) 23 U/L (12-78) . PROGRESS AND PROCEDURES Course of Care: Patient had additional workup to include CT based on her pain localizing to the right lower abdomen. Her lab continues to look good in the CT was negative. Large amount of stool in the right colon so will add MiraLAX as well as continue with the Zofran. Follow up with her primary care provider in 72 hours if not completely better. Sooner here if she develops fever or significantly worsening symptoms. Disposition: Discharged in good and improved condition. CLINICAL IMPRESSION Acute gastroenteritis. Constipation Acute right lower quadrant abdominal pain. INSTRUCTIONS Rest at home for two days. Return to work in three days when better. Drink plenty of fluids. No dietary restrictions. Drink plenty of fluids. Warnings: CONTROLLED SUBSTANCE WARNINGS. GENERAL WARNINGS: Return or contact your physician immediately if your condition worsens or changes unexpectedly, if not improving as expected, or if other problems arise. SPECIFICALLY, return if you develop fever, the inability to keep fluids down, blood in diarrhea or fainting. Prescription Medications: Miralax: take 1 package mixed in 8 ounces water or juice every day for 5 days as needed for constipation. Dispense one (1) twelve pack. No refills. Substitution is permissible. Zofran (orally disintegrating tablets) 8 mg: take 1 orally every 8 hours as needed for nausea and vomiting. Dispense ten (10). No refill. Substitution is permissible. Promethazine Tablets 25 mg: take 1-2 tablets orally every 6 hours as needed for nausea and vomiting. Dispense fifteen (15). No refill. Follow-up: Follow up with your doctor in two days if not better. Understanding of the discharge instructions verbalized by patient. (Electronically signed by Edvin Raines, 09/20/2016 23:05)
--- NOTE | 2016-09-20 18:51 | ED NURSING NOTES ---
Clinical Report - Nurses [facility] [address] [place] [address] 09/20/2016 16:23 Patient: YOLIE CHAMPION TRIAGE Triage time 16:30 Sep 20 2016. Acuity: LEVEL 3. Chief Complaint: ABDOMINAL PAIN, NAUSEA and VOMITING. Alert. BETHEL COMA SCORE: Bethel Coma Scale: 15- eyes open spontaneously (4); best verbal response- oriented x 4 (5); best motor response- obeys commands (6). --16:45 Escobar Raman R.N. 16:32 09/20/16. BP: 123/72. HR: 89. RR: 16. O2 saturation: 99% on room air. Temp: 99 F (oral). Pain level now: 910. Additional comments: RUQ abd pain. --16:45 Escobar Raman R.N. Weight: 61.2 kg stated. Height/Length: 60 inches Per Patient. BMI: 26.4. --16:43 Escobar Raman R.N. Medications CeleXA Oral. --19:29 Chaparrita Bardales. Allergies No Known Drug Allergy. --19:28 Chaparrita Bardales. History Arrived by private vehicle. Historian: patient. Unaccompanied. Primary physician (Harshad Moyer, [place], [place]). ( RUQ Abdominal Pain associated with N/V. Seen here here 2 3 days ago for same c/o.). Onset. (about 7 days ago). She has had fever, nausea, vomiting and abdominal pain. Last oral intake by patient was (about 1 1/2 hours ago, but the food came right back up). 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 Symptoms did not improve after treatment. (Zofran, warm showers). PAST MEDICAL HX: Immunizations: up-to-date. Last normal menstrual period was 7 weeks ago- pt has an IUD placed. Denies current . SOCIAL HX: Heavy tobacco smoker (cigarette)- less than 1 pack per day. No alcohol use or drug use. No recent travel. No infectious disease exposure. ABUSE ASSESSMENT: No report of abuse. FALL RISK ASSESSMENT: Fall risk assessment completed. No fall risk identified. NUTRITIONAL RISK ASSESSMENT: The nutritional risk assessment revealed no deficiencies. FUNCTIONAL ASSESSMENT: Functional assessment: no impairments noted. LEARNING NEEDS ASSESSMENT: The learning needs assessment revealed no barriers. SKIN INTEGRITY ASSESSMENT: Skin integrity risk assessment completed. No skin integrity risk identified. --16:45 Escobar Raman R.N. PROBLEMS: Abdominal Pain. Syncope. Alcohol Intoxication. Mental Illness. Viral Disease. Vomiting. Otitis Externa. Lumbar Strain. Sinusitis. Fall. Abrasion(s). Skin Rash. Contusion. Herpes Genitalis. Tetanus Status. Laceration. Bronchitis. URI. Pharyngitis. Otitis Media. Frequent Ear Infections. UTI - Urinary Tract Infection. Depression. Immunizations. Ear Infection. --16:42 Escobar Raman R.N. ADDITIONAL SURGERIES: Adenoidectomy. Tonsillectomy. Tympanostomy Tubes. --16:42 Escobar Raman R.N. Interventions ID band on patient. To treatment room. --16:45 Escobar Raman R.N. PHYSICAL ASSESSMENT Ambulatory to room. GENERAL / NEURO / PSYCH: Alert. Oriented X 4. Appears in pain. HEENT: Mucous membranes are pink. RESPIRATORY: Respirations not labored. CVS: Cardiac rhythm: normal sinus rhythm. Capillary refill less than 2 seconds. GI / : Abdominal tenderness in the right upper quadrant. SKIN: Skin is warm and dry. --16:46 Escobar Raman R.N. NURSING PROGRESS NOTES Patient gowned. Reassurance given to the patient. Patient identifiers checked. Call light placed in reach. Side rails up x 1. Bed placed in lowest position. Brakes of bed on. Patient ready for evaluation- chart flagged and COOK CAMP notified. --16:46 Escobar Raman R.N. 17:30 09/20/2016 Site #1 started via IV in the left antecubital space with an 20g angiocath, with aseptic technique and good blood return; one attempt. Blood drawn: rainbow set. Labeled in the presence of the patient and sent to the lab. Saline lock flushed with 10 mL saline. --17:45 Escobar Raman R.N. 17:35 09/20/2016 Started bag #1 1000 mL IV Fluids IV NS (Saline); at 1000 mL/hr over 60 minute(s) via site #1. Allergies verified and confirmed 5 rights. IV patency established. IV site checked: no pain, redness, or swelling. IV flushed thoroughly pre- and post-medication administration. --17:46 Escobar Raman R.N. 17:37 09/20/2016 Zofran (Ondansetron HCl) IVP 8 mg given over 3 minute(s) via site #1. Allergies verified and confirmed 5 rights. IV patency established. IV site checked: no pain, redness, or swelling. IV flushed thoroughly pre- and post-medication administration. IVP given by RN. --17:47 Escobar Raman R.N. 17:39 09/20/2016 Dilaudid (HYDROmorphone HCl PF) IVP 0.5 mg given over 2 minute(s) via site #1. Allergies verified, confirmed 5 rights and sedative warning given to the patient. IV patency established. IV site checked: no pain, redness, or swelling. IV flushed thoroughly pre- and post-medication administration. IVP given by RN. --17:48 Escobar Raman R.N. 17:47 09/20/16. Patient transported to CT by stretcher with tech. --17:50 Escobar Raman R.N. Patient returned from CT by stretcher with tech. --17:56 Escobar Raman R.N. 17:55 09/20/16. Patient ID band checked for patient name, birthdate and medical record number: patient confirmed. Instructions provided to collect clean catch urine and patient verbalized understanding. Clean catch urine collected with return of yellow-colored clear urine; odor is normal; sample sent to lab for urinalysis. Specimen labeled in the presence of the patient. --17:58 Escobar Raman R.N. 18:40 09/20/2016 IV Fluids IV NS Discontinued: bag #1 infused. Total amount infused: 1000 mL. IV patency established. IV site checked: no pain, redness, or swelling. IV flushed thoroughly. --21:33 Escobar Raman R.N. 19:15 09/20/2016 Site #1 removed upon discharge. Catheter intact. Manual pressure, pressure dressing and bandaid applied. --21:34 Escobar Raman R.N. DISPOSITION / DISCHARGE 19:15 09/20/16. BP: 115/70. HR: 66. RR: 16. O2 saturation: 100% on room air. Temp: 98.4 F (oral). Pain level now: 08/31. Additional comments: Abdominal pain. --21:29 Escboar Raman R.N. Departure time: 1919. --21:29 Escobar Raman R.N. 19:20. Condition at departure: improved. No learning barriers present. Discharge instructions provided and reviewed with the patient. Reviewed medication(s) dosing information (prescription given to pt). Reviewed referral to family practice for followup. Patient verbalized understanding. Written instructions provided in Sami. The patient was discharged by the physician. She was discharged home and accompanied by auto detailer. She left the Emergency Department ambulatory and via private vehicle. Contractor Field Hauling driving. --21:31 Escobar Raman R.N. Locked/Released at 09/20/2016 21:36 by Escobar Raman R.N.
--- NOTE | 2016-09-20 18:51 | ED CLINICAL REPORT ---
Clinical Report - Physicians/Mid Levels [facility] [address] [place] [address] 09/20/2016 16:23 [id number] Time Seen: 16:32 Sep 20 2016. Arrived- By private vehicle. Historian- patient. HISTORY OF PRESENT ILLNESS Chief Complaint: ABDOMINAL PAIN and VOMITING, DIARRHEA and NAUSEA. At its maximum, severity described as severe. When seen in the E.D., severity described as severe. This started about 5 days ago and is still present and now worse. It is described as "pain", cramping and well localized and it is described as located in the right abdomen and right lower quadrant. The patient has had nausea, loss of appetite, vomiting and diarrhea. No recent travel. Similar symptoms previously: Recent medical care: The patient was seen recently at this facility. REVIEW OF SYSTEMS No black stools, hematemesis, difficulty with urination, pain with urination or urinary frequency. No bloody stools, fever, headache, chest pain or difficulty breathing. No cough, joint pain, skin rash or chills. Denies current . All systems otherwise negative, except as recorded above. PAST HISTORY No history of heart disease, lung disease or diabetes mellitus. SOCIAL HISTORY Smoker- current status unknown. Alcohol use. No drug use. ADDITIONAL NOTES The nursing notes have been reviewed. PHYSICAL EXAM Appearance: Alert. Oriented X3. No acute distress. Eyes: Pupils equal, round and reactive to light. Eyes normal inspection. ENT: Nose normal. Pharynx normal. Neck: Normal inspection. Neck supple. No JVD or lymphadenopathy. CVS: Normal heart rate and rhythm. Heart sounds normal. Respiratory: No respiratory distress. Breath sounds normal. Abdomen: Soft. Moderate tenderness in the right lower quadrant. No guarding, rebound tenderness or obturator or psoas sign present. No organomegaly. No mass. Back: Normal inspection. No CVA tenderness. Skin: Skin warm and dry. No rash. Extremities: Extremities exhibit normal ROM. No lower extremity edema. Neuro: No motor deficit. No sensory deficit. LABS, X-RAYS, AND EKG Abdominal CT: No mass, appendicitis or diverticulitis. large amount of stool in the right abdomen. Abdominal CT performed with IV contrast. The study was discussed with the radiologist. Laboratory Tests: UA-Culture if indicated: (ANNALISE: 09/20/2016 17:45) ( [facility] 09/20/2016 18:14) Final results Test Result Flag Units (Reference) URINE COLOR LIGHT YELLOW URINE APPEARANCE CLEAR URINE GLUCOSE NEGATIVE (NEGATIVE) URINE BILIRUBIN NEGATIVE (NEGATIVE) URINE KETONE NEGATIVE (NEGATIVE) URINE SPECIFIC GRAVITY 1.010 (1.010-1.030) URINE PH 7.5 (5.0-8.0) URINE PROTEIN NEGATIVE (NEGATIVE) URINE UROBILINOGEN 0.2 EU/dL (0.2-1.0) URINE NITRITE NEGATIVE (NEGATIVE) URINE BLOOD TRACE-LYSED (NEGATIVE) URINE LEUK ESTERASE NEGATIVE (NEGATIVE) URINE RBC NONE SEEN rbc/hpf (0-1) URINE WBC 0-1 wbc/hpf (0-1) URINE EPITHELIAL CELLS 1-3 EPI/hpf (0-5) URINE BACTERIA NONE SEEN (NONE SEEN) URINE COMMENT CULT NOT INDICATED URINE CULTURES ARE SET-UP BASED ON THE FOLLOWING CRITERIA:POSITIVE NITRITEPOSITIVE LEUKOCYTE ESTERASEGREATER THAN 10 WHITE BLOOD CELLSMODERATE (2+) OR GREATER BACTERIA Urine: (ANNALISE: 09/20/2016 17:45) ( [facility] 09/20/2016 18:03) Final results Test Result Flag Units (Reference) URINE NEGATIVE CBC w Diff: (ANNALISE: 09/20/2016 17:30) ( [facility] 09/20/2016 17:55) Final results Test Result Flag Units (Reference) WHITE BLOOD COUNT 7.9 K/uL (4.5-11.5) RED BLOOD COUNT 4.83 M/uL (4.00-5.20) HEMOGLOBIN 15.0 gm/dL (12.0-16.0) HEMATOCRIT 44.3 % (36.0-46.0) MEAN CELL VOLUME 92 fL (80-100) MEAN CORPUSCULAR HGB 31 pg (26-34) MEAN CORPUSCULAR HGB CONC 34 g/dL (31-37) RED CELL DISTRIBUTION WIDTH 13.6 % (11.6-14.8) PLATELET COUNT 228 K/uL (150-400) NEUTROPHIL % 79.9 H % (50-75) LYMPH % 14.6 L % (25-40) MONO % 4.2 % (3-14) EOSINOPHIL % 0.9 % (0-4) BASOPHIL % 0.4 % (0-2) Urine Drug Screen: (ANNALISE: 09/20/2016 17:45) ( [facility] 09/20/2016 18:21) Final results Test Result Flag Units (Reference) AMPHETAMINE/METHAMPHETAMINE NEGATIVE (NEGATIVE) BARBITURATE NEGATIVE (NEGATIVE) BENZODIAZEPINE NEGATIVE (NEGATIVE) CANNABINOID NEGATIVE (NEGATIVE) COCAINE NEGATIVE (NEGATIVE) ECSTASY NEGATIVE (NEGATIVE) METHADONE NEGATIVE (NEGATIVE) OPIATE NEGATIVE (NEGATIVE) The urine drug screen is a qualitative screening test fordrug overdose and abuse. All screen results should beconsidered as presumptive.Drugs screened for are as follows:BenzodiazepinesCocaineAmphetamines/MetamphetaminesTHC (Tetrahydrocannabinol)OpiatesBarbituratesEcstasyMethadonePositive results are unconfirmed. For confirmation, notifythe lab for the specimen to be sent to the reference lab.All confirmations must be performed by a differentmethodology.The ingestion of natural herbal and plant productscontaining Ephedra/Ephedra metabolites can produce in urineone or more substances capable of cross reacting withamphetamine/methamphetamine immunoassays. These testsprovide a preliminary result only. A more specificalternative chemical method must be used to obtain aconfirmed analytical result. CMP: (ANNALISE: 09/20/2016 17:30) ( [facility] 09/20/2016 18:11) Final results Test Result Flag Units (Reference) GLUCOSE 86 mg/dL (70-110) BUN 11 mg/dL (7-18) CREATININE 0.9 mg/dL (0.6-1.3) Estimated GFR >60 mL/min Estimated GFR- >60 mL/min Note: Persistent reduction over 3 months in eGFR<60 mL/min/1.73 m2 defines CKD. Patients with eGFR values>=60 mL/min/1.73 m2 may also have CKD if evidence ofpersistent proteinuria. Additional information may be foundat www.[email or web address].org. SODIUM 144 mmol/L (136-145) POTASSIUM 4.3 mmol/L (3.5-5.1) CHLORIDE 107 mmol/L (98-107) CARBON DIOXIDE 29 mmol/L (21-32) CALCIUM 9.1 mg/dL (8.5-10.1) TOTAL PROTEIN 7.2 g/dL (6.4-8.2) ALBUMIN 3.8 g/dL (3.3-5.0) BILIRUBIN, TOTAL 0.5 mg/dL (0.0-1.0) ALKALINE PHOSPHATASE 40 L U/L (46-116) AST (SGOT) 23 U/L (15-37) ALT (SGPT) 23 U/L (12-78) . PROGRESS AND PROCEDURES Course of Care: Patient had additional workup to include CT based on her pain localizing to the right lower abdomen. Her lab continues to look good in the CT was negative. Large amount of stool in the right colon so will add MiraLAX as well as continue with the Zofran. Follow up with her primary care provider in 72 hours if not completely better. Sooner here if she develops fever or significantly worsening symptoms. Disposition: Discharged in good and improved condition. CLINICAL IMPRESSION Acute gastroenteritis. Constipation Acute right lower quadrant abdominal pain. INSTRUCTIONS Rest at home for two days. Return to work in three days when better. Drink plenty of fluids. No dietary restrictions. Drink plenty of fluids. Warnings: CONTROLLED SUBSTANCE WARNINGS. GENERAL WARNINGS: Return or contact your physician immediately if your condition worsens or changes unexpectedly, if not improving as expected, or if other problems arise. SPECIFICALLY, return if you develop fever, the inability to keep fluids down, blood in diarrhea or fainting. Prescription Medications: Miralax: take 1 package mixed in 8 ounces water or juice every day for 5 days as needed for constipation. Dispense one (1) twelve pack. No refills. Substitution is permissible. Zofran (orally disintegrating tablets) 8 mg: take 1 orally every 8 hours as needed for nausea and vomiting. Dispense ten (10). No refill. Substitution is permissible. Promethazine Tablets 25 mg: take 1-2 tablets orally every 6 hours as needed for nausea and vomiting. Dispense fifteen (15). No refill. Follow-up: Follow up with your doctor in two days if not better. Understanding of the discharge instructions verbalized by patient. (Electronically signed by Edvin Raines, 09/20/2016 23:05)
--- NOTE | 2016-09-20 23:05 | ED DISCHARGE INSTRUCTIONS ---
Patient: YOLIE CHAMPION General Instructions [facility] VisitID: [id number] [place] [address] 31y, F Registration Date/Time: 09/20/2016 Acute gastroenteritis. Constipation Acute right lower quadrant abdominal pain. INSTRUCTIONS Rest at home for two days. Return to work in three days when better. Drink plenty of fluids. No dietary restrictions. Drink plenty of fluids. Warnings: CONTROLLED SUBSTANCE WARNINGS. GENERAL WARNINGS: Return or contact your physician immediately if your condition worsens or changes unexpectedly, if not improving as expected, or if other problems arise. SPECIFICALLY, return if you develop fever, the inability to keep fluids down, blood in diarrhea or fainting. Prescription Medications: Miralax: take 1 package mixed in 8 ounces water or juice every day for 5 days as needed for constipation. Dispense one (1) twelve pack. No refills. Substitution is permissible. Zofran (orally disintegrating tablets) 8 mg: take 1 orally every 8 hours as needed for nausea and vomiting. Dispense ten (10). No refill. Substitution is permissible. Promethazine Tablets 25 mg: take 1-2 tablets orally every 6 hours as needed for nausea and vomiting. Dispense fifteen (15). No refill. Follow-up: Follow up with your doctor in two days if not better. Understanding of the discharge instructions verbalized by patient. ADDITIONAL INFORMATION Viral Gastroenteritis (6Yr-Adult) Gastroenteritis is another name for thestomach flu.It is most often caused by a virus that affects the stomach and intestinal tract. Symptoms include stomach cramping and fever, vomiting and/or diarrhea, and can last from 2 to 7 days. The danger from repeated vomiting or diarrhea is dehydration. This is the loss of too much water and minerals from the body. When this occurs, body fluids must be replaced. Antibiotics are not effective for this illness, but simple home treatment will be helpful. Home Care If symptoms are severe, rest at home for the next 24 hours. Avoid tobacco, caffeine, and alcohol use, which can worsen symptoms. Acetaminophen (Tylenol) or ibuprofen (Motrin, Advil) may be usedfor fever or pain unless another medication was prescribed. NOTE: If you have chronic liver or kidney disease or ever had a stomach ulcer or GI bleeding, talk with your doctor before using these medicines. Aspirin should never be used in anyone under 18 years of age who is ill with a fever. It may cause severe liver damage. If medicines for diarrhea or vomiting were prescribed, be sure they are takenonly as directed. If vomiting, drink small amounts of clear fluids (such as water, sports drinks, clear sodas) at frequent intervals to prevent dehydration. Start with 1 to 2 tablespoons every 10 minutes. Once vomiting stops, follow these guidelines: During The First 12 To 24 Hours follow the diet below: Beverages: Sport drinks like Gatorade, soft drinks without caffeine; dhruv maría, mineral water (plain or flavored), decaffeinated tea and coffee. Soups: Clear broth, consomm and bouillon Desserts: Plain gelatin (Jell-O), Popsicles and fruit juice bars. During The Next 24 Hours you may add the following to the above: Hot cereal, plain toast, bread, rolls, crackers Plain noodles, rice, mashed potatoes, chicken noodle or rice soup Unsweetened canned fruit (avoid pineapple), bananas Limit fat intake to less than 15 grams per day by avoiding margarine, butter, oils, mayonnaise, sauces, gravies, fried foods, peanut butter, meat, poultry, and fish. Limit fiber; avoid raw or cooked vegetables, fresh fruits (except bananas), and bran cereals. Limit caffeine and chocolate. Do not use spices or seasonings except salt. During The Next 24 Hours The patient can gradually resume a normal diet as symptoms lessen. Preventing Spread Hand washing with soap and water is the best way to prevent the spread of viruses. Caregivers should wash their hands before andafter touching the sick person. The sick person, as well as everyone in the family,should wash their hands after using the toilet and before meals. Clean the toilet after each use. People with diarrhea should not prepare food for others. If you are preparing your own foods, wash your hands before and after. Follow Up with your doctor as advised. Call your doctor if you are not improving over the next 2 to 3 days. If a stool (diarrhea) sample was taken, you may call in 2 days (or as directed) for the results. Get Prompt Medical Attention if any of the following occur: Increasing abdominal pain Continued vomiting (unable to keep liquids down) Frequent diarrhea (more than 5 times a day) Blood in vomit or stool (black or red color) Dark urine, reduced urine output, or extreme thirst Weakness, dizziness, fainting Drowsiness, confusion, stiff neck, or seizure Fever of 100.4F (38C) oral or higher, not better with fever medication New rash Constipation (Adult) Constipation is bowel movements that are less frequent than usual. Stools often become very hard and difficult to pass. This may lead to abdominal pain and bloating. It may also cause painful bowel movements. Constipation may be due to a diet thats low in fiber. Some medications, especially pain medications, can also cause it. Constipation may be treated with enemas, suppositories, laxatives or stool softeners. Your doctor will advise you which will work best for you. Follow the advice below to help avoid this problem in the future. Home Care Medication: Take any medicines as directed. Some laxatives are safe only for occasional use. Others can be taken on a regular basis. Talk to your doctor or pharmacist if you have questions. General Care: Prescription pain medications can cause constipation. If you are prescribed pain medications, ask the doctor whether you should also take a stool softener. A diet high in fiber with plenty of fluids helps to maintain regular, soft bowel movements. The following foods are good sources of dietary fiber: Cereals and breads: Whole grain cereal with bran, oatmeal, rolled oats, whole grain breads Fruits: All fruits (fresh and dried), raisins, prunes, apricots, berries, figs Vegetables: Any fresh vegetables, especially peas, broccoli, brussels sprouts, winter squash, green beans, cauliflower, dove beans, carrots Other: Popcorn, brown rice Drink plenty of water when you increase the amount of fiber you eat. Follow Up with your doctor or return to this facility if symptoms do not improve in the next few days. You may require further tests or a referral to a specialist. Get Prompt Medical Attention if any of the following occur: Fever over 100.4F (38C) Failure to resume normal bowel movements Increasing abdominal or back pain Nausea or vomiting Abdominal swelling Blood in the stool Weakness, dizziness or fainting Unexpected vaginal bleeding High Fiber Diet Fiber is present in all fruits, vegetables, cereals and grains. Fiber passes through the body undigested. A high fiber diet helps food move through the intestinal tract. The added bulk is helpful in preventing constipation. In people with diverticulosis it serves to clean out the pouches along the colon wall while preventing new ones from forming. A high fiber diet also reduces the risk of colon cancer, decreases blood cholesterol and prevents high blood sugar in people with diabetes. The foods listed below are high in fiber and should be included in your diet. If you are not used to high fiber foods, start with 1 or 2 foods from this list. Every 3-4 days add a new one to your diet until you are eating 4 high fiber foods per day. This should give you 20-35 Gm of fiber/day. It is also important to drink a lot of water when you are on this diet (6-8 glasses a day). Water causes the fiber to swell and increases the benefit. Foods High In Dietary Fiber: BREADS: Made with 100% whole wheat flour; denise, wheat or rye crackers; tortillas, bran muffins CEREALS: Whole grain cereal with bran (Chex, Raisin Bran, [place] Bran), oatmeal, rolled oats, granola, wheat flakes, brown rice NUTS: Any nuts FRUITS: All fresh fruits along with edible skins, (bananas, citrus fruit, mangoes, pears, prunes, raisins, apples, pineapple, apricot, melon, jams and marmalades), fruit juices (especially prune juice) VEGETABLES: All types, preferably raw or lightly cooked: especially, celery, eggplant, potatoes,spinach, broccoli, brussel sprouts, winter squash, carrots, cauliflower, soybeans, lentils, fresh and dried beans of all kinds OTHER: Popcorn, any spices Ondansetron Oral disintegrating tablet What is this medicine? ONDANSETRON (on SANTANA se debi) is used to treat nausea and vomiting caused by chemotherapy. It is also used to prevent or treat nausea and vomiting after surgery. How should I use this medicine? These tablets are made to dissolve in the mouth. Do not try to push the tablet through the foil backing. With dry hands, peel away the foil backing and gently remove the tablet. Place the tablet in the mouth and allow it to dissolve, then swallow. While you may take these tablets with water, it is not necessary to do so. Talk to your materials planning analyst regarding the use of this medicine in children. Special care may be needed. What side effects may I notice from receiving this medicine? Side effects that you should report to your doctor or health animal daycare provider as soon as possible: allergic reactions like skin rash, itching or hives, swelling of the face, lips, or tongue breathing problems dizziness fast or irregular heartbeat feeling faint or lightheaded, falls fever and chills swelling of the hands and feet tightness in the chest Side effects that usually do not require medical attention (report to your doctor or health animal daycare provider if they continue or are bothersome): constipation or diarrhea headache What may interact with this medicine? Do not take this medicine with any of the following medications: -apomorphine -cisapride -dofetilide -dronedarone -pimozide -thioridazine -ziprasidone This medicine may also interact with the following medications: -carbamazepine -phenytoin -rifampicin -tramadol -other medicines that prolong the QT interval (cause an abnormal heart rhythm) What if I miss a dose? If you miss a dose, take it as soon as you can. If it is almost time for your next dose, take only that dose. Do not take double or extra doses. Where should I keep my medicine? Keep out of the reach of children. Store between 2 and 30 degrees C (36 and 86 degrees F). Throw away any unused medicine after the expiration date. What should I tell my health care provider before I take this medicine? They need to know if you have any of these conditions: heart disease history of irregular heartbeat liver disease low levels of magnesium or potassium in the blood an unusual or allergic reaction to ondansetron, granisetron, other medicines, foods, dyes, or preservatives or trying to get breast-feeding What should I watch for while using this medicine? Check with your doctor or health animal daycare provider as soon as you can if you have any sign of an allergic reaction. Promethazine Hydrochloride Oral tablet What is this medicine? PROMETHAZINE (proe METH a zeen) is an antihistamine. It is used to treat allergic reactions and to treat or prevent nausea and vomiting from illness or motion sickness. It is also used to make you sleep before surgery, and to help treat pain or nausea after surgery. How should I use this medicine? Take this medicine by mouth with a glass of water. Follow the directions on the prescription label. Take your doses at regular intervals. Do not take your medicine more often than directed. Talk to your materials planning analyst regarding the use of this medicine in children. Special care may be needed. This medicine should not be given to infants and children younger than 2 years old. What side effects may I notice from receiving this medicine? Side effects that you should report to your doctor or health animal daycare provider as soon as possible: blurred vision irregular heartbeat, palpitations or chest pain muscle or facial twitches pain or difficulty passing urine seizures skin rash slowed or shallow breathing unusual bleeding or bruising yellowing of the eyes or skin Side effects that usually do not require medical attention (report to your doctor or health animal daycare provider if they continue or are bothersome): headache nightmares, agitation, nervousness, excitability, not able to sleep (these are more likely in children) stuffy nose What may interact with this medicine? Do not take this medicine with any of the following medications: medicines called MAO Inhibitors like Nardil, Parnate, Marplan, Eldepryl other phenothiazines like trimethobenzamide This medicine may also interact with the following medications: barbiturates like phenobarbital bromocriptine certain antidepressants certain antihistamines used in allergy or cold medicines epinephrine levodopa medicines for sleep medicines for mental problems and psychotic disturbances medicines for movement abnormalities as in Parkinson's disease, or for gastrointestinal problems muscle relaxants prescription pain medicines What if I miss a dose? If you miss a dose, take it as soon as you can. If it is almost time for your next dose, take only that dose. Do not take double or extra doses. Where should I keep my medicine? Keep out of the reach of children. Store at room temperature, between 20 and 25 degrees C (68 and 77 degrees F). Protect from light. Throw away any unused medicine after the expiration date. What should I tell my health care provider before I take this medicine? They need to know if you have any of these conditions: glaucoma high blood pressure or heart disease kidney disease liver disease lung or breathing disease, like asthma prostate trouble pain or difficulty passing urine seizures an unusual or allergic reaction to promethazine or phenothiazines, other medicines, foods, dyes, or preservatives or trying to get breast-feeding What should I watch for while using this medicine? Tell your doctor or health animal daycare provider if your symptoms do not start to get better in 1 to 2 days. You may get drowsy or dizzy. Do not drive, use machinery, or do anything that needs mental alertness until you know how this medicine affects you. To reduce the risk of dizzy or fainting spells, do not stand or sit up quickly, especially if you are an older patient. Alcohol may increase dizziness and drowsiness. Avoid alcoholic drinks. Your mouth may get dry. Chewing sugarless gum or sucking hard candy, and drinking plenty of water may help. Contact your doctor if the problem does not go away or is severe. This medicine may cause dry eyes and blurred vision. If you wear contact lenses you may feel some discomfort. Lubricating drops may help. See your eye doctor if the problem does not go away or is severe. This medicine can make you more sensitive to the sun. Keep out of the sun. If you cannot avoid being in the sun, wear protective clothing and use sunscreen. Do not use sun lamps or tanning beds/booths. If you are diabetic, check your blood-sugar levels regularly. You have been given the following additional information: Gastroenteritis, Viral (6Y-Adult) Constipation (Adult) Diet, High Fiber Ondansetron Oral disintegrating tablet Promethazine Hydrochloride Oral tablet Rest at home for two days. Return to work in three days when better. (Electronically signed by Edvin Raines, 09/20/2016 23:05)
--- NOTE | 2016-09-20 23:06 | ED MAR SUMMARY ---
..... Medication Administration Record [facility] [address] [place] [address] Patient: YOLIE CHAMPION Visit ID: [id number] 31y, F Weight: 61.2 kg Height/Length: 60 in BMI: 26.4 ALLERGIES: No Known Drug Allergy Start 17:35 09/20/2016 Escobar Raman R.N., Stop 18:40 09/20/2016 Escobar Raman R.N. Medication Administered: IV NS (SALINE), Dose: IV Fluids over 60 minute(s), Rate: 1000 mL/hr, Dispensed: 1000 mL bag, Site: #1 left AC. Medication Ordered: IV NS with Normal Saline 1 Liter: initial bolus 1000 mL (1000 mL/hr), then 1000 mL/hr for X1 (NOW). Given 17:37 09/20/2016 Escobar Raman R.N. Medication Administered: ZOFRAN [IVP] (ONDANSETRON HCL), Dose: 8 mg IVP over 3 minute(s), Site: #1 left AC. Medication Ordered: Zofran IV 8 mg (NOW). Given 17:39 09/20/2016 Escobar Raman R.N. Medication Administered: DILAUDID [IVP] (HYDROMORPHONE HCL PF), Dose: 0.5 mg IVP over 2 minute(s), Site: #1 left AC. Medication Ordered: Dilaudid IV 0.5 mg (NOW).
--- NOTE | 2016-09-20 23:06 | ED MAR SUMMARY ---
..... Medication Administration Record [facility] [address] [place] [address] Patient: YOLIE CHAMPION Visit ID: [id number] 31y, F Weight: 61.2 kg Height/Length: 60 in BMI: 26.4 ALLERGIES: No Known Drug Allergy Start 17:35 09/20/2016 Escobar Raman R.N., Stop 18:40 09/20/2016 Escobar Raman R.N. Medication Administered: IV NS (SALINE), Dose: IV Fluids over 60 minute(s), Rate: 1000 mL/hr, Dispensed: 1000 mL bag, Site: #1 left AC. Medication Ordered: IV NS with Normal Saline 1 Liter: initial bolus 1000 mL (1000 mL/hr), then 1000 mL/hr for X1 (NOW). Given 17:37 09/20/2016 Escobar Raman R.N. Medication Administered: ZOFRAN [IVP] (ONDANSETRON HCL), Dose: 8 mg IVP over 3 minute(s), Site: #1 left AC. Medication Ordered: Zofran IV 8 mg (NOW). Given 17:39 09/20/2016 Escobar Raman R.N. Medication Administered: DILAUDID [IVP] (HYDROMORPHONE HCL PF), Dose: 0.5 mg IVP over 2 minute(s), Site: #1 left AC. Medication Ordered: Dilaudid IV 0.5 mg (NOW).
--- NOTE | 2016-09-20 23:06 | ED MED RECONCILIATION SUMMARY ---
Patient: YOLIE CHAMPION Medication Reconciliation Report [facility] VisitID: [id number] [place] [address] 31y, F Registration Date/Time: 09/20/2016 Weight: 61.2 kg Height/Length: 60 in. BMI: 26.4 ALLERGIES: No Known Drug Allergy The patient's Home Medications are listed below: THE FOLLOWING MEDICATIONS NEED TO BE RECONCILED: CeleXA Oral The source(s) of the original Home Medication information: Not obtained. The following Medications were given to the patient in the Emergency Department: IV NS IV Fluids bolus 0, then 1000 mL/hr, administered: 09/20/2016 5:35:00 PM Zofran [IVP] IVP 8 mg, administered: 09/20/2016 5:37:00 PM Dilaudid [IVP] IVP 0.5 mg, administered: 09/20/2016 5:39:00 PM The following Medications were prescribed to the patient: Miralax: take 1 package mixed in 8 ounces water or juice every day for 5 days as needed for constipation. Dispense one (1) twelve pack. No refills. Substitution is permissible. -- Edvin Raines Zofran (orally disintegrating tablets) 8 mg: take 1 orally every 8 hours as needed for nausea and vomiting. Dispense ten (10). No refill. Substitution is permissible. -- Edvin Raines Promethazine Tablets 25 mg: take 1-2 tablets orally every 6 hours as needed for nausea and vomiting. Dispense fifteen (15). No refill. -- Edvin Raines
--- NOTE | 2016-09-20 23:06 | ED MED RECONCILIATION SUMMARY ---
Patient: YOLIE CHAMPION Medication Reconciliation Report [facility] VisitID: [id number] [place] [address] 31y, F Registration Date/Time: 09/20/2016 Weight: 61.2 kg Height/Length: 60 in. BMI: 26.4 ALLERGIES: No Known Drug Allergy The patient's Home Medications are listed below: THE FOLLOWING MEDICATIONS NEED TO BE RECONCILED: CeleXA Oral The source(s) of the original Home Medication information: Not obtained. The following Medications were given to the patient in the Emergency Department: IV NS IV Fluids bolus 0, then 1000 mL/hr, administered: 09/20/2016 5:35:00 PM Zofran [IVP] IVP 8 mg, administered: 09/20/2016 5:37:00 PM Dilaudid [IVP] IVP 0.5 mg, administered: 09/20/2016 5:39:00 PM The following Medications were prescribed to the patient: Miralax: take 1 package mixed in 8 ounces water or juice every day for 5 days as needed for constipation. Dispense one (1) twelve pack. No refills. Substitution is permissible. -- Edvin Raines Zofran (orally disintegrating tablets) 8 mg: take 1 orally every 8 hours as needed for nausea and vomiting. Dispense ten (10). No refill. Substitution is permissible. -- Edvin Raines Promethazine Tablets 25 mg: take 1-2 tablets orally every 6 hours as needed for nausea and vomiting. Dispense fifteen (15). No refill. -- Edvin Raines
== END 2016-09-20 19:20 | disposition home or self-care (01) ==
LOC: ED SRH 16:23
DX: K52.9 Noninfective gastroenteritis and colitis, unspecified (principal); K59.00 Constipation, unspecified; R10.31 Right lower quadrant pain
CPT/HCPCS: 90004; 90100; 92760; 92761; 92762; 92763; 92764; 92765; 92766; 92767; 93070; 95059

== ENCOUNTER 2017-01-22 17:39 | Emergency (ER) | payer OTHER ==
--- NOTE | 2017-01-22 18:22 | ED NURSING NOTES ---
Clinical Report - Nurses [place] [address] [place] [address] 01/22/2017 17:39 Patient: YOLIE CHAMPION TRIAGE Triage time 17:43. Acuity: LEVEL 4. Chief Complaint: INJURY TO LEFT ANKLE. 17:51 01/22/17. Alert. No acute distress. SEPSIS SCREEN: Sepsis Screen. Negative (no infection suspected/documented). BETHEL COMA SCORE: Bethel Coma Scale: 15- eyes open spontaneously (4); best verbal response- oriented x 4 (5); best motor response- obeys commands (6). --17:51 Lucia Zuluaga R.N. 17:43 01/22/17. BP: 96/80. HR: 89. RR: 16. O2 saturation: 100%. Temp: 98.2 F. Pain level now: 04/30. --17:51 Lucia Zuluaga R.N. Weight: 63.5 kg stated. Height/Length: 60 inches Per Patient. BMI: 27.3. --17:48 Lucia Zuluaga R.N. Medications Zoloft Oral. --17:47 Lucia Zuluaga R.N. Wellbutrin Oral. --17:47 Lucia Zuluaga R.N. Allergies No Known Drug Allergy. --17:47 Lucia Zuluaga R.N. History Arrived by private vehicle. Historian: patient. Primary physician ([facility]). This occurred yesterday. Occurred at home. Mechanism of injury: sustained a twisting injury. ( Patient states she jumped on her bed yesterday when "it twisted and I went down". She states it was swollen and painful when she woke up.). She has had numbness, tingling, and trouble walking. Treatment ACUPRESSURE THERAPIST: None. PAST MEDICAL HX: Tetanus status: up-to-date. Immunizations: up-to-date. Denies current . SOCIAL HX: Smoker- current status unknown (patient states "I vape tobacco and nicotine"). No alcohol use or drug use. ABUSE ASSESSMENT: No report of abuse. FALL RISK ASSESSMENT: Fall risk assessment completed. No fall risk identified. NUTRITIONAL RISK ASSESSMENT: The nutritional risk assessment revealed no deficiencies. FUNCTIONAL ASSESSMENT: Functional assessment: no impairments noted. LEARNING NEEDS ASSESSMENT: The learning needs assessment revealed no barriers. SKIN INTEGRITY ASSESSMENT: Skin integrity risk assessment completed. No skin integrity risk identified. --17:51 Lucia Zuluaga R.N. PROBLEMS: Gastroenteritis. Constipation. Abdominal Pain. Syncope. Alcohol Intoxication. Hepatitis. Mental Illness. Viral Disease. Vomiting. Otitis Externa. Lumbar Strain. Sinusitis. Fall. Sprain. Abrasion(s). Skin Rash. Contusion. Herpes Genitalis. Tetanus Status. Laceration. Bronchitis. URI. Pharyngitis. Otitis Media. Frequent Ear Infections. UTI - Urinary Tract Infection. Depression. Immunizations. LNMP - Last Normal Menstrual Period. Ear Infection. --17:48 Lucia Zuluaga R.N. ADDITIONAL SURGERIES: Adenoidectomy. Tonsillectomy. Tympanostomy Tubes. --17:48 Lucia Zuluaga R.N. Interventions ID band on patient. To treatment room. --17:51 Lucia Zuluaga R.N. PHYSICAL ASSESSMENT 17:52 01/22/17. To room via wheelchair. GENERAL / NEURO / PSYCH: Oriented X 4. Alert. Appears in pain and anxious. EXTREMITIES: Limited ROM present in the left ankle. Capillary refill is less than 2 seconds in the extremities. Extremity pulses are within normal limits. Left lateral ankle: tenderness and swelling. Limited ROM secondary to pain and swelling. SKIN: Skin intact. Skin is warm and dry. --17:52 Lucia Zuluaga R.N. NURSING PROGRESS NOTES 17:52 01/22/17. Two patient identifiers checked. Call light placed in reach. Side rails up x 1. Bed placed in lowest position. Brakes of bed on. --17:52 Lucia Zuluaga R.N. 18:19 01/22/2017 Motrin PO Tablets 800 mg given. Allergies verified and confirmed 5 rights. --18:19 Lucia Zuluaga R.N. Ortho boot applied to left foot by tech; distal pulses intact, sensation intact and motor function within normal limits. Patient fit with new crutches. --18:35 Holden Cochran, ARPITA Tech1. DISPOSITION / DISCHARGE 18:28 01/22/17. No learning barriers present. Discharge instructions provided and reviewed with the patient and parent. Reviewed warnings. Reviewed medication(s). Treatments reviewed. Reviewed referrals. Patient and parent verbalized understanding. Written instructions provided in Sinhala. The patient was discharged home and accompanied by parent. She left the Emergency Department on crutches and via private vehicle. Parent driving. --18:28 Lucia Zuluaga R.N. 17:43 01/22/17. BP: 96/80. HR: 89. RR: 16. O2 saturation: 100%. Temp: 98.2 F. Pain level now: 04/30. --18:28 Lucia Zuluaga R.N. Locked/Released at 01/22/2017 22:55 by Lucia Zuluaga R.N.
--- NOTE | 2017-01-22 18:22 | ED ORDER SUMMARY ---
..... Patient: YOLIE CHAMPION OrderSheet [facility] VisitID: [id number] [place] [address] 31y, F Registration Date/Time: 01/22/2017 ORDER SHEET Weight: 63.5 kg (stated) Allergies: No Known Drug Allergy GENERAL ORDERS: Ankle 3 or 4V Left Urgent (17:47 01/22/2017 EKoroleva P.A.-C) (Ack 17:50 PWeiler ER Tech1) (18:11 RMarsden R.N.) - (air stirrup left) (18:14 01/22/2017 EKoroleva P.A.-C) (22:55 RMarsden R.N.) MEDICATION ORDERS: Motrin PO 800 mg (NOW) (18:13 01/22/2017 EKoroleva P.A.-C) (Ack 18:15 RMarsden R.N.) (18:19 RMarsden R.N.) IV FLUIDS: ORDER SHEET NOTES: [Electronically signed by Cindy TothAThomas-Zohreh (18:40 01/22/2017)] [Electronically signed by Lucia Zuluaga R.N. (22:55 01/22/2017)] [Electronically locked/signed by Lucia Zuluaga R.N. (22:55 01/22/2017)]
--- NOTE | 2017-01-22 18:22 | ED CLINICAL REPORT ---
Clinical Report - Physicians/Mid Levels [facility] [address] [place] [address] 01/22/2017 17:39 [id number] Time Seen: 17:48 Jan 22 2017. Arrived- By private vehicle. Historian- patient. HISTORY OF PRESENT ILLNESS Chief Complaint: Injury to the left ankle. The injury happened yesterday. Occurred at home. The patient sustained a twisting injury and crush injury. Patient is experiencing moderate pain. Patient denies injury to the head or neck. (Patient attempted to jump onto a bed, however lost balance and fall back to the ground, twisting her ankle and landing on it awkwardly, and has had pain since. Reports 10+ years previously had a broken bone in the ankle, no surgery required.). REVIEW OF SYSTEMS The patient complains of pain on weight bearing. All systems otherwise negative, except as recorded above. PAST HISTORY See nurses notes. The patient has had a prior injury to the same area. SOCIAL HISTORY Never smoker. No alcohol use or drug use. ADDITIONAL NOTES The nursing notes have been reviewed. PHYSICAL EXAM Vital Signs: 01/22/2017 17:43 BP: 96/80. HR: 89. RR: 16. O2 saturation: 100%. Temp: 98.2 F. Pain level now: 10/10. Appearance: Alert. Appears to be in pain. Patient in mild distress. Head: Head atraumatic. ENT: Nose normal. Neck: Normal inspection. CVS: Normal heart rate and rhythm. Heart sounds normal. Respiratory: No respiratory distress. Breath sounds normal. Skin: Skin intact. Skin warm. Extremities: Left medial ankle. No tenderness or swelling. Left lateral ankle: mild tenderness and swelling. No ecchymosis or foreign body. No foot injury. Neuro, Vascular and Tendons: Vascular status intact. Motor intact. Gait: The patient was unable to bear weight. LABS, X-RAYS, AND EKG Lt Ankle X-ray: (IMPRESSION: 1. Normal left ankle. Electronically Final signed by:Harjit Rodriguez MD 01/22/2017 6:26:33 PM). PROGRESS AND PROCEDURES PROCEDURES (ankle boot/ crutches). Course of Care: No signs of obvious fracture, patient advised she continues to have pain, maybe a possible very small lateral fracture, skull X-Ray with Dr. Barros , As Well As Dr Thomas Parker Patient to Follow up Outpatient with Orthopedics As Needed Pain Persists. No Signs of Open Wound. No Signs of Laceration. Patient is stable. Symptoms better. Patient/family counseled. Disposition: Discharged. CLINICAL IMPRESSION Sprain of the tibiofibular ligament of the left ankle. INSTRUCTIONS Apply ice. Wear boot orthosis. Elevate affected areas above chest level. You may walk and bear weight as tolerated. (as mentioned small possible left lateral ankle avulsion "chip fracture" , may follow up with ORTHO). Prescription Medications: Motrin 800 mg tablets: take 1 tablet orally every 8 hours as needed for pain. Dispense thirty (30). No refills. Substitution is permissible. Tramadol 50 mg tablets: take 1-2 orally every 6 hours as needed for pain. Dispense twenty (20). No refills. Understanding of the discharge instructions verbalized by patient. Follow-up with: [facility], , [address], , [place], [phone] Follow up. Call for the next available appointment. (Electronically signed by Cindy Toth P.A.-C 01/22/2017 18:40)
--- NOTE | 2017-01-22 18:22 | ED CLINICAL REPORT ---
Clinical Report - Physicians/Mid Levels [facility] [address] [address] 01/22/2017 17:39 [id number] Time Seen: 17:48 Jan 22 2017. Arrived- By private vehicle. Historian- patient. HISTORY OF PRESENT ILLNESS Chief Complaint: Injury to the left ankle. The injury happened yesterday. Occurred at home. The patient sustained a twisting injury and crush injury. Patient is experiencing moderate pain. Patient denies injury to the head or neck. (Patient attempted to jump onto a bed, however lost balance and fall back to the ground, twisting her ankle and landing on it awkwardly, and has had pain since. Reports 10+ years previously had a broken bone in the ankle, no surgery required.). REVIEW OF SYSTEMS The patient complains of pain on weight bearing. All systems otherwise negative, except as recorded above. PAST HISTORY See nurses notes. The patient has had a prior injury to the same area. SOCIAL HISTORY Never smoker. No alcohol use or drug use. ADDITIONAL NOTES The nursing notes have been reviewed. PHYSICAL EXAM Vital Signs: 01/22/2017 17:43 BP: 96/80. HR: 89. RR: 16. O2 saturation: 100%. Temp: 98.2 F. Pain level now: 10/10. Appearance: Alert. Appears to be in pain. Patient in mild distress. Head: Head atraumatic. ENT: Nose normal. Neck: Normal inspection. CVS: Normal heart rate and rhythm. Heart sounds normal. Respiratory: No respiratory distress. Breath sounds normal. Skin: Skin intact. Skin warm. Extremities: Left medial ankle. No tenderness or swelling. Left lateral ankle: mild tenderness and swelling. No ecchymosis or foreign body. No foot injury. Neuro, Vascular and Tendons: Vascular status intact. Motor intact. Gait: The patient was unable to bear weight. LABS, X-RAYS, AND EKG Lt Ankle X-ray: (IMPRESSION: 1. Normal left ankle. Electronically Final signed by:Harjit Rodriguez MD 01/22/2017 6:26:33 PM). PROGRESS AND PROCEDURES PROCEDURES (ankle boot/ crutches). Course of Care: No signs of obvious fracture, patient advised she continues to have pain, maybe a possible very small lateral fracture, skull X-Ray with Dr. Barros , As Well As Dr Thomas Parker Patient to Follow up Outpatient with Orthopedics As Needed Pain Persists. No Signs of Open Wound. No Signs of Laceration. Patient is stable. Symptoms better. Patient/family counseled. Disposition: Discharged. CLINICAL IMPRESSION Sprain of the tibiofibular ligament of the left ankle. INSTRUCTIONS Apply ice. Wear boot orthosis. Elevate affected areas above chest level. You may walk and bear weight as tolerated. (as mentioned small possible left lateral ankle avulsion "chip fracture" , may follow up with ORTHO). Prescription Medications: Motrin 800 mg tablets: take 1 tablet orally every 8 hours as needed for pain. Dispense thirty (30). No refills. Substitution is permissible. Tramadol 50 mg tablets: take 1-2 orally every 6 hours as needed for pain. Dispense twenty (20). No refills. Understanding of the discharge instructions verbalized by patient. Follow-up with: [facility], , [address], , [place], [phone] Follow up. Call for the next available appointment. (Electronically signed by Cindy Toth P.A.-C 01/22/2017 18:40)
--- NOTE | 2017-01-22 18:22 | ED ORDER SUMMARY ---
..... Patient: YOLIE CHAMPION OrderSheet [facility] VisitID: [id number] [place] [address] 31y, F Registration Date/Time: 01/22/2017 ORDER SHEET Weight: 63.5 kg (stated) Allergies: No Known Drug Allergy GENERAL ORDERS: Ankle 3 or 4V Left Urgent (17:47 01/22/2017 EKoroleva P.A.-C) (Ack 17:50 PWeiler ER Tech1) (18:11 RMarsden R.N.) - (air stirrup left) (18:14 01/22/2017 EKoroleva P.A.-C) (22:55 RMarsden R.N.) MEDICATION ORDERS: Motrin PO 800 mg (NOW) (18:13 01/22/2017 EKoroleva P.A.-C) (Ack 18:15 RMarsden R.N.) (18:19 RMarsden R.N.) IV FLUIDS: ORDER SHEET NOTES: [Electronically signed by Cindy TothAThomas-Zohreh (18:40 01/22/2017)] [Electronically signed by Lucia Zuluaga R.N. (22:55 01/22/2017)] [Electronically locked/signed by Lucia Zuluaga R.N. (22:55 01/22/2017)]
--- NOTE | 2017-01-22 18:22 | ED NURSING NOTES ---
Clinical Report - Nurses [place] [address] [place] [address] 01/22/2017 17:39 Patient: YOLIE CHAMPION TRIAGE Triage time 17:43. Acuity: LEVEL 4. Chief Complaint: INJURY TO LEFT ANKLE. 17:51 01/22/17. Alert. No acute distress. SEPSIS SCREEN: Sepsis Screen. Negative (no infection suspected/documented). BETHEL COMA SCORE: Bethel Coma Scale: 15- eyes open spontaneously (4); best verbal response- oriented x 4 (5); best motor response- obeys commands (6). --17:51 Lucia Zuluaga R.N. 17:43 01/22/17. BP: 96/80. HR: 89. RR: 16. O2 saturation: 100%. Temp: 98.2 F. Pain level now: 04/30. --17:51 Lucia Zuluaga R.N. Weight: 63.5 kg stated. Height/Length: 60 inches Per Patient. BMI: 27.3. --17:48 Lucia Zuluaga R.N. Medications Zoloft Oral. --17:47 Lucia Zuluaga R.N. Wellbutrin Oral. --17:47 Lucia Zuluaga R.N. Allergies No Known Drug Allergy. --17:47 Lucia Zuluaga R.N. History Arrived by private vehicle. Historian: patient. Primary physician ([facility]). This occurred yesterday. Occurred at home. Mechanism of injury: sustained a twisting injury. ( Patient states she jumped on her bed yesterday when "it twisted and I went down". She states it was swollen and painful when she woke up.). She has had numbness, tingling, and trouble walking. Treatment OPERATIONS GENERAL AGENT: None. PAST MEDICAL HX: Tetanus status: up-to-date. Immunizations: up-to-date. Denies current . SOCIAL HX: Smoker- current status unknown (patient states "I vape tobacco and nicotine"). No alcohol use or drug use. ABUSE ASSESSMENT: No report of abuse. FALL RISK ASSESSMENT: Fall risk assessment completed. No fall risk identified. NUTRITIONAL RISK ASSESSMENT: The nutritional risk assessment revealed no deficiencies. FUNCTIONAL ASSESSMENT: Functional assessment: no impairments noted. LEARNING NEEDS ASSESSMENT: The learning needs assessment revealed no barriers. SKIN INTEGRITY ASSESSMENT: Skin integrity risk assessment completed. No skin integrity risk identified. --17:51 Lucia Zuluaga R.N. PROBLEMS: Gastroenteritis. Constipation. Abdominal Pain. Syncope. Alcohol Intoxication. Hepatitis. Mental Illness. Viral Disease. Vomiting. Otitis Externa. Lumbar Strain. Sinusitis. Fall. Sprain. Abrasion(s). Skin Rash. Contusion. Herpes Genitalis. Tetanus Status. Laceration. Bronchitis. URI. Pharyngitis. Otitis Media. Frequent Ear Infections. UTI - Urinary Tract Infection. Depression. Immunizations. LNMP - Last Normal Menstrual Period. Ear Infection. --17:48 Lucia Zuluaga R.N. ADDITIONAL SURGERIES: Adenoidectomy. Tonsillectomy. Tympanostomy Tubes. --17:48 Lucia Zuluaga R.N. Interventions ID band on patient. To treatment room. --17:51 Lucia Zuluaga R.N. PHYSICAL ASSESSMENT 17:52 01/22/17. To room via wheelchair. GENERAL / NEURO / PSYCH: Oriented X 4. Alert. Appears in pain and anxious. EXTREMITIES: Limited ROM present in the left ankle. Capillary refill is less than 2 seconds in the extremities. Extremity pulses are within normal limits. Left lateral ankle: tenderness and swelling. Limited ROM secondary to pain and swelling. SKIN: Skin intact. Skin is warm and dry. --17:52 Lucia Zuluaga R.N. NURSING PROGRESS NOTES 17:52 01/22/17. Two patient identifiers checked. Call light placed in reach. Side rails up x 1. Bed placed in lowest position. Brakes of bed on. --17:52 Lucia Zuluaga R.N. 18:19 01/22/2017 Motrin PO Tablets 800 mg given. Allergies verified and confirmed 5 rights. --18:19 Lucia Zuluaga R.N. Ortho boot applied to left foot by tech; distal pulses intact, sensation intact and motor function within normal limits. Patient fit with new crutches. --18:35 Holden Cochran, ARPITA Tech1. DISPOSITION / DISCHARGE 18:28 01/22/17. No learning barriers present. Discharge instructions provided and reviewed with the patient and parent. Reviewed warnings. Reviewed medication(s). Treatments reviewed. Reviewed referrals. Patient and parent verbalized understanding. Written instructions provided in Turkish. The patient was discharged home and accompanied by parent. She left the Emergency Department on crutches and via private vehicle. Parent driving. --18:28 Lucia Zuluaga R.N. 17:43 01/22/17. BP: 96/80. HR: 89. RR: 16. O2 saturation: 100%. Temp: 98.2 F. Pain level now: 04/30. --18:28 Lucia Zuluaga R.N. Locked/Released at 01/22/2017 22:55 by Lucia Zuluaga R.N.
--- NOTE | 2017-01-22 18:26 | DIAGNOSTIC IMAGING REPORT ---
PROCEDURE: XR ANKLE 3 OR 4 VIEWS - LEFT INDICATION: TRAUMA/INJURY TECHNIQUE: Four views. COMPARISON: Left ankle x-ray 05/23/2012. FINDINGS: 3 mm accessory ossicle adjacent to the medial malleolus. There is no fracture or dislocation. Normal ankle mortise. Soft tissues are unremarkable. No significant interval change. IMPRESSION: 1. Normal left ankle.
--- NOTE | 2017-01-22 22:56 | ED MAR SUMMARY ---
..... Medication Administration Record [facility] [address] [place] [address] Patient: YOLIE CHAMPION Visit ID: [id number] 31y, F Weight: 63.5 kg Height/Length: 60 in BMI: 27.3 ALLERGIES: No Known Drug Allergy Given 18:19 01/22/2017 Lucia Zuluaga R.N. Medication Administered: MOTRIN [PO], Dose: 800 mg Tablets PO. Medication Ordered: Motrin PO 800 mg (NOW).
--- NOTE | 2017-01-22 22:56 | ED MED RECONCILIATION SUMMARY ---
Patient: YOLIE CHAMPION Medication Reconciliation Report [facility] VisitID: [id number] [place] [address] 31y, F Registration Date/Time: 01/22/2017 Weight: 63.5 kg Height/Length: 60 in. BMI: 27.3 ALLERGIES: No Known Drug Allergy The patient's Home Medications are listed below: THE FOLLOWING MEDICATIONS NEED TO BE RECONCILED: Wellbutrin Oral Zoloft Oral The source(s) of the original Home Medication information: Not obtained. The following Medications were given to the patient in the Emergency Department: Motrin [PO] PO 800 mg, administered: 01/22/2017 6:19:00 PM The following Medications were prescribed to the patient: Motrin 800 mg tablets: take 1 tablet orally every 8 hours as needed for pain. Dispense thirty (30). No refills. Substitution is permissible. -- Cindy Toth, P.A.-C Tramadol 50 mg tablets: take 1-2 orally every 6 hours as needed for pain. Dispense twenty (20). No refills. -- Cindy Toth, P.A.-C
--- NOTE | 2017-01-22 22:56 | ED MED RECONCILIATION SUMMARY ---
Patient: YOLIE CHAMPION Medication Reconciliation Report [facility] VisitID: [id number] [place] [address] 31y, F Registration Date/Time: 01/22/2017 Weight: 63.5 kg Height/Length: 60 in. BMI: 27.3 ALLERGIES: No Known Drug Allergy The patient's Home Medications are listed below: THE FOLLOWING MEDICATIONS NEED TO BE RECONCILED: Wellbutrin Oral Zoloft Oral The source(s) of the original Home Medication information: Not obtained. The following Medications were given to the patient in the Emergency Department: Motrin [PO] PO 800 mg, administered: 01/22/2017 6:19:00 PM The following Medications were prescribed to the patient: Motrin 800 mg tablets: take 1 tablet orally every 8 hours as needed for pain. Dispense thirty (30). No refills. Substitution is permissible. -- Cindy Toth, P.A.-C Tramadol 50 mg tablets: take 1-2 orally every 6 hours as needed for pain. Dispense twenty (20). No refills. -- Cindy Toth, P.A.-C
--- NOTE | 2017-01-22 22:56 | ED DISCHARGE INSTRUCTIONS ---
Patient: YOLIE CHAMPION General Instructions [facility] VisitID: [id number] [address] [place] [place] [address] 31y, F Registration Date/Time: 01/22/2017 Sprain of the tibiofibular ligament of the left ankle. INSTRUCTIONS Apply ice. Wear boot orthosis. Elevate affected areas above chest level. You may walk and bear weight as tolerated. (as mentioned small possible left lateral ankle avulsion "chip fracture" , may follow up with ORTHO). Prescription Medications: Motrin 800 mg tablets: take 1 tablet orally every 8 hours as needed for pain. Dispense thirty (30). No refills. Substitution is permissible. Tramadol 50 mg tablets: take 1-2 orally every 6 hours as needed for pain. Dispense twenty (20). No refills. Understanding of the discharge instructions verbalized by patient. [facility] with: [facility], , [address], [place], [address] Follow up. Call for the next available appointment. ADDITIONAL INFORMATION Sprain, Ankle,With X-Ray A sprain is an injury to the ligaments or capsule that holds a joint together. There are no broken bones. Most sprains take from four to six weeks to heal. If the ligament is completely torn (severe sprain), it can take several months to recover. Mild to moderate sprains may be treated with an elastic wrap or an in-shoe splint to provide support and prevent re-injury. A mild sprain may not require any additional support. A severe sprain may require surgery to repair. Home care The following guidelines will help you care for your injury at home: Stay off the injured leg as much as possible until you can walk on it without pain. If you have a lot of pain with walking, crutches or a walker may be prescribed. (These can be rented or purchased at many pharmacies and surgical or orthopedic supply stores). Follow your doctor's advice regarding when to begin bearing weight on that leg. Keep your leg elevated to reduce pain and swelling. When sleeping, place a pillow under the injured leg. When sitting, support the injured leg so it is level with your waist. This is very important during the first 48 hours. Apply an ice pack (ice cubes in a plastic bag, wrapped in a towel) over the injured area for 20 minutes every 12 hours the first day. You can place the ice pack directly over the splint/cast. If you were given a boot, open it to apply the ice pack. Continue with ice packs 34 times a day for the next two days, then as needed for the relief of pain and swelling. You may use acetaminophen or ibuprofen to control pain, unless another pain medicine was prescribed. If you have chronic liver or kidney disease or ever had a stomach ulcer or GI bleeding, talk with your doctor before using these medicines. You may return to sports after healing, when you can run without pain. A sprained ankle is at risk for re-injury during the first six weeks. During that time, protect your ankle with an in-shoe splint that prevents tilting of your ankle from side to side. This is very important if you do active work or play sports during that time. Follow-up care Any X-rays you had today dont show any broken bones, breaks, or fractures. Sometimes fractures dont show up on the first X-ray. Bruises and sprains can sometimes hurt as much as a fracture. These injuries can take time to heal completely. If your symptoms dont improve or they get worse, talk with your doctor. You may need a repeat X-ray. When to seek medical care Get prompt medical attention if any of the following occur: The plaster cast or splint gets wet or soft The fiberglass cast or splint gets wet and does not dry for 24 hours Pain or swelling increases, or redness appears Toes become cold, blue, numb or tingly Re-injure your ankle Aircast Sp-Walker Boot Traditional splints and casts for the foot and ankle protect the injury by preventing movement at the joints. However, many injuries heal better and faster if the injured joint can be moved, while protected at the same time. This is the reason for using an Aircast Walker boot. This is a short boot that provides support and protection to the foot and ankle while allowing you to walk. It contains padded air cells that provide compression and help circulation. It is used for both foot and ankle injuries - both sprains and minor fractures. Ankle and foot sprains can take 4-6 weeks to heal. Persons with severe injuries or over age 60 may require more time to heal. During that time, you are prone to re-injury by suddenly twisting your foot or ankle again while the ligaments are still weak. When treating a sprain, the [employer] Walker boot should be worn whenever walking for at least four weeks, or as long as you continue to have ankle pain. Talk to your doctor for specific advice about the treatment of your condition. Air-Stirrup and SP-Walker are trademarks of [employer]. For more information about their products, see www.[employer]. You have been given the following additional information: Sprain, Ankle, With X-Ray Walker Boot You may walk and bear weight as tolerated. (Electronically signed by Cindy Toth P.A.-C 01/22/2017 18:40)
--- NOTE | 2017-01-22 22:56 | ED DISCHARGE INSTRUCTIONS ---
Patient: YOLIE CHAMPION General Instructions [facility] VisitID: [id number] [address] [place] [address] 31y, F Registration Date/Time: 01/22/2017 Sprain of the tibiofibular ligament of the left ankle. INSTRUCTIONS Apply ice. Wear boot orthosis. Elevate affected areas above chest level. You may walk and bear weight as tolerated. (as mentioned small possible left lateral ankle avulsion "chip fracture" , may follow up with ORTHO). Prescription Medications: Motrin 800 mg tablets: take 1 tablet orally every 8 hours as needed for pain. Dispense thirty (30). No refills. Substitution is permissible. Tramadol 50 mg tablets: take 1-2 orally every 6 hours as needed for pain. Dispense twenty (20). No refills. Understanding of the discharge instructions verbalized by patient. Follow-up with: [facility], , [address], [place], [address] Follow up. Call for the next available appointment. ADDITIONAL INFORMATION Sprain, Ankle,With X-Ray A sprain is an injury to the ligaments or capsule that holds a joint together. There are no broken bones. Most sprains take from four to six weeks to heal. If the ligament is completely torn (severe sprain), it can take several months to recover. Mild to moderate sprains may be treated with an elastic wrap or an in-shoe splint to provide support and prevent re-injury. A mild sprain may not require any additional support. A severe sprain may require surgery to repair. Home care The following guidelines will help you care for your injury at home: Stay off the injured leg as much as possible until you can walk on it without pain. If you have a lot of pain with walking, crutches or a walker may be prescribed. (These can be rented or purchased at many pharmacies and surgical or orthopedic supply stores). Follow your doctor's advice regarding when to begin bearing weight on that leg. Keep your leg elevated to reduce pain and swelling. When sleeping, place a pillow under the injured leg. When sitting, support the injured leg so it is level with your waist. This is very important during the first 48 hours. Apply an ice pack (ice cubes in a plastic bag, wrapped in a towel) over the injured area for 20 minutes every 12 hours the first day. You can place the ice pack directly over the splint/cast. If you were given a boot, open it to apply the ice pack. Continue with ice packs 34 times a day for the next two days, then as needed for the relief of pain and swelling. You may use acetaminophen or ibuprofen to control pain, unless another pain medicine was prescribed. If you have chronic liver or kidney disease or ever had a stomach ulcer or GI bleeding, talk with your doctor before using these medicines. You may return to sports after healing, when you can run without pain. A sprained ankle is at risk for re-injury during the first six weeks. During that time, protect your ankle with an in-shoe splint that prevents tilting of your ankle from side to side. This is very important if you do active work or play sports during that time. Follow-up care Any X-rays you had today dont show any broken bones, breaks, or fractures. Sometimes fractures dont show up on the first X-ray. Bruises and sprains can sometimes hurt as much as a fracture. These injuries can take time to heal completely. If your symptoms dont improve or they get worse, talk with your doctor. You may need a repeat X-ray. When to seek medical care Get prompt medical attention if any of the following occur: The plaster cast or splint gets wet or soft The fiberglass cast or splint gets wet and does not dry for 24 hours Pain or swelling increases, or redness appears Toes become cold, blue, numb or tingly Re-injure your ankle Aircast Sp-Walker Boot Traditional splints and casts for the foot and ankle protect the injury by preventing movement at the joints. However, many injuries heal better and faster if the injured joint can be moved, while protected at the same time. This is the reason for using an Aircast Walker boot. This is a short boot that provides support and protection to the foot and ankle while allowing you to walk. It contains padded air cells that provide compression and help circulation. It is used for both foot and ankle injuries - both sprains and minor fractures. Ankle and foot sprains can take 4-6 weeks to heal. Persons with severe injuries or over age 60 may require more time to heal. During that time, you are prone to re-injury by suddenly twisting your foot or ankle again while the ligaments are still weak. When treating a sprain, the [employer] Walker boot should be worn whenever walking for at least four weeks, or as long as you continue to have ankle pain. Talk to your doctor for specific advice about the treatment of your condition. Air-Stirrup and SP-Walker are trademarks of [employer]. For more information about their products, see www.[employer]. You have been given the following additional information: Sprain, Ankle, With X-Ray Walker Boot You may walk and bear weight as tolerated. (Electronically signed by Cindy Toth P.A.-C 01/22/2017 18:40)
--- NOTE | 2017-01-22 22:56 | ED MAR SUMMARY ---
..... Medication Administration Record [facility] [address] [place] [address] Patient: YOLIE CHAMPION Visit ID: [id number] 31y, F Weight: 63.5 kg Height/Length: 60 in BMI: 27.3 ALLERGIES: No Known Drug Allergy Given 18:19 01/22/2017 Lucia Zuluaga R.N. Medication Administered: MOTRIN [PO], Dose: 800 mg Tablets PO. Medication Ordered: Motrin PO 800 mg (NOW).
== END 2017-01-22 18:28 | disposition home or self-care (01) ==
LOC: ED SRH 17:39
DX: S93.432A Sprain of tibiofibular ligament of left ankle, initial encounter (principal); X50.0XXA Overexertion from strenuous movement or load, initial encounter; Y93.89 Activity, other specified; Y92.009 Unspecified place in unspecified non-institutional (private) residence as the place of occurrence of the external cause; Y99.9 Unspecified external cause status